=== PATIENT | male | born 1950 | race African-American/Black ===

== ENCOUNTER 2018-05-17 18:32 | Inpatient (IN) | payer OTHER ==
[~2018-05-17] VITALS: Ht 170.2 cm; Wt 107.6 kg
[~2018-05-17 18:32] MED LIST: AMLODIPINE BESYL5 MG ORAL; ASPIRIN81 M3 PO; GLIPIZIDE10 MG PO; LISINOPRIL5 MG ORAL
[2018-05-17 18:43] VITALS: BP 108/80
--- NOTE | 2018-05-17 19:01 | Emergency Room Report ---
History of Present Illness General Chief Complaint: Syncope Source: Patient, EMS Present Illness HPI 67-year-old male with hypertension diabetes presenting with generalized weakness near syncopal episode. Per patient he is visiting here, he staying at his sister's house with no air-conditioner, suddenly felt extremely hot. His sister called 911 because it looked like he was going to pass out but never actually passed out. When EMS arrived they found him to be tachycardic to the 130s as well as hypotensive. Sinus tachycardia. The gave him 500 mL of fluid and his systolic improved to 110. Patient is awake and alert since that he just felt very hot today. Denies any chest pain or shortness of breath. Says that he drank 7 7-ups today but did not have any appetite for solid food. Denies any abdominal pain. Allergies: Coded Allergies: No Known Allergies (Unverified , 05/17/18) Patient History Past Medical History: see triage record Past Surgical History: none Pertinent Family History: none Reviewed Nursing Documentation: PMH: Agreed; PSxH: Agreed Nursing Documentation-PMH Hx Hypertension: Yes Hx Diabetes: Yes Review of Systems All Other Systems: negative except mentioned in HPI Physical Exam Vital Signs Date Time Temp Pulse Resp B/P (MAP) Pulse Ox O2 Delivery O2 Flow Rate FiO2 05/17/18 18:23 98.0 124 20 105/69 97 Room Air 98.1 Sp02 EP Interpretation: reviewed, normal General Appearance: alert, GCS 15, non-toxic, mild distress Head: normocephalic, atraumatic Eyes: bilateral eye normal inspection, bilateral eye PERRL, bilateral eye EOMI ENT: normal ENT inspection, normal pharynx, normal voice, moist mucus membranes Neck: normal inspection, full range of motion, supple Respiratory: normal inspection, lungs clear, normal breath sounds, no respiratory distress, no retraction, no wheezing, speaking full sentences, chest symmetrical Cardiovascular #1: no edema, tachycardia Cardiovascular #2: 2+ radial (R), 2+ radial (L) Gastrointestinal: normal inspection, non tender, soft, non-distended, no guarding Musculoskeletal: normal inspection, back normal, normal range of motion, non- tender Neurologic: normal inspection, alert, oriented x3, responsive, caustic loader III-XII nml as tested, motor strength/tone normal, sensory intact, normal gait, speech normal Psychiatric: normal inspection, judgement/insight normal, memory normal Skin: normal inspection, normal color, no rash, warm/dry, well hydrated, normal turgor Medical Decision Making Diagnostic Impression: Primary Impression: Pre-syncope Additional Impressions: Dehydration Acute electrocardiogram changes Sepsis Renal failure ER Course 67-year-old male with generalized weakness and near syncopal episode DDX: Vasovagal vs. orthostatic / hypovolemic/dehydration vs. cardiac arrhythmia (SVT , Afib) vs. cardiac (, ACS) vs. PE vs. metabolic (hypoglycemia, hypoxia) versus sepsis, UTI, pneumonia Plan: bgm, cbc, bmp, ekg, cxr consider IVF ER course: Patient tachycardic to 120, given fluids Broad-spectrum antibiotics He remains awake alert, conversing with family Sepsis Re-examination Time: [9 PM VS: Temp AFEB HR 96 BP 109/70 RR 18 CVS: RRR Respiratory: Lungs clear bilaterally Peripheral pulses: 2+ radial Capillary refill: <2 seconds Skin exam: warm, dry, no rash, not mottled Disposition: Patient requires admission to telemetry D/W hospitalist DR Funes Please note that this Emergency Department Report was dictated using Simple[employer]TVax[employer] and frame mechanic technology software, occasionally this can lead to erroneous entry secondary to interpretation by the dictation equipment EKG Diagnostic Results EP Interpretation: Yes Rate: Tachycardic Rhythm: NSR ST Segments: T-wave inversion 1 and aVL ASA given to patient: No Rhythm Strip EP Interpretation: Yes Rate: 120 Rhythm: NSR, no PVCs, no ectopy Chest X-ray CXR: Ordered: Yes 1 view Indication: Syncope EP interpretation: Yes Interpretation: No consolidation, no effusion, no PTX, no acute cardiopulmonary disease Impression: No acute disease Electronically signed by Lea Flores MD Laboratory Tests Test 05/17/18 18:45 05/17/18 20:30 05/17/18 21:10 White Blood Count 19.1 K/UL (4.8-10.8) H Red Blood Count 4.17 M/UL (4.70-6.10) L Hemoglobin 12.6 G/DL (14.2-18.0) L Hematocrit 38.0 % (42.0-52.0) L Mean Corpuscular Volume 91 FL (80-99) Mean Corpuscular Hemoglobin 30.2 PG (27.0-31.0) Mean Corpuscular Hemoglobin Concent 33.1 G/DL (32.0-36.0) Red Cell Distribution Width 12.6 % (11.6-14.8) Platelet Count 263 K/UL (150-450) Mean Platelet Volume 5.3 FL (6.5-10.1) L Neutrophils (%) (Auto) % (45.0-75.0) Lymphocytes (%) (Auto) % (20.0-45.0) Monocytes (%) (Auto) % (1.0-10.0) Eosinophils (%) (Auto) % (0.0-3.0) Basophils (%) (Auto) % (0.0-2.0) Differential Total Cells Counted 100 Neutrophils % (Manual) 87 % (45-75) H Lymphocytes % (Manual) 4 % (20-45) L Monocytes % (Manual) 3 % (1-10) Eosinophils % (Manual) 0 % (0-3) Basophils % (Manual) 1 % (0-2) Band Neutrophils 5 % (0-8) Platelet Estimate Adequate Platelet Morphology Normal Red Blood Cell Morphology Normal Sodium Level 138 MMOL/L (136-145) Potassium Level 3.8 MMOL/L (3.5-5.1) Chloride Level 102 MMOL/L (98-107) Carbon Dioxide Level 20 MMOL/L (21-32) L Anion Gap 17 mmol/L (5-15) H Blood Urea Nitrogen 53 mg/dL (7-18) H Creatinine 3.2 MG/DL (0.55-1.30) H Estimate Glomerular Filtration Rate 23.6 mL/min (>60) Glucose Level 186 MG/DL (74-106) H Lactic Acid Level 3.40 mmol/L (0.4-2.0) H 1.70 mmol/L (0.66-2.22) Calcium Level 8.8 MG/DL (8.5-10.1) Total Bilirubin 0.5 MG/DL (0.2-1.0) Aspartate Amino Transferase (AST) 37 U/L (15-37) Alanine Aminotransferase (ALT) 27 U/L (12-78) Alkaline Phosphatase 76 U/L (46-116) Troponin I 0.000 ng/mL (0.000-0.056) Pro-B-Type Natriuretic Peptide 257 pg/mL (0-125) H Total Protein 8.0 G/DL (6.4-8.2) Albumin 3.0 G/DL (3.4-5.0) L Globulin 5.0 g/dL Albumin/Globulin Ratio 0.6 (1.0-2.7) L Serum Alcohol < 3 mg/dL Urine Color Pending Urine Appearance Pending Urine pH Pending Urine Specific Eldridge Pending Urine Protein Pending Urine Glucose (UA) Pending Urine Ketones Pending Urine Occult Blood Pending Urine Nitrite Pending Urine Bilirubin Pending Urine Urobilinogen Pending Urine Leukocyte Esterase Pending Urine Opiates Screen Pending Urine Barbiturates Screen Pending Phencyclidine (PCP) Screen Pending Urine Amphetamines Screen Pending Urine Benzodiazepines Screen Pending Urine Cocaine Screen Pending Urine Marijuana (THC) Screen Pending Last Vital Signs Date Time Temp Pulse Resp B/P (MAP) Pulse Ox O2 Delivery O2 Flow Rate FiO2 05/17/18 18:43 98.1 119 20 108/80 96 Room Air 98.1 Disposition: ADMITTED INPATIENT Condition: Serious Referrals: NON PHYSICIAN (PCP) Lea Flores M.D. May 17, 2018 19:01
[2018-05-17 19:02] LABS: HEMOGLOBIN 12.6 G/DL (14.2-18.0); MEAN CORPUSCULAR VOLUME 91 FL (80-99); PLATELET COUNT 263 K/UL (150-450); RED BLOOD COUNT 4.17 M/UL (4.70-6.10); RED CELL DISTRIBUTION WIDTH 12.6 % (11.6-14.8); WHITE BLOOD COUNT 19.1 K/UL (4.8-10.8)
[2018-05-17 19:23] LABS: ANION GAP 17 mmol/L (5-15); BLOOD UREA NITROGEN 53 mg/dL (7-18); CALCIUM 8.8 MG/DL (8.5-10.1); CARBON DIOXIDE 20 MMOL/L (21-32); CHLORIDE 102 MMOL/L (98-107); CREATININE 3.2 MG/DL (0.55-1.30); POTASSIUM 3.8 MMOL/L (3.5-5.1); SODIUM 138 MMOL/L (136-145)
[2018-05-17 19:35] LABS: ALANINE AMINOTRANSFERASE 27 U/L (12-78); ALBUMIN/GLOBULIN RATIO 0.6 (1.0-2.7); ALKALINE PHOSPHATASE 76 U/L (46-116); ASPARTATE AMINO TRANSFERASE 37 U/L (15-37); BILIRUBIN,TOTAL 0.5 MG/DL (0.2-1.0)
[2018-05-17] MEDS ORDERED: GLUCOTROL10 MG ORAL (19:42)
[2018-05-17] MEDS ORDERED: METOPROLOL SUC100 MG ORAL (19:42)
[2018-05-17] MEDS ORDERED: Vancomycin 1.5gm/D5W 250ml 250 ML IVPB ONE (20:15)
[2018-05-17] MEDS ORDERED: Piperacillin/Tazobactam 3.375 GM in NS 110 ML IVPB ONE (20:15)
[2018-05-17] MEDS ORDERED: ATORVASTATIN CA40 MG ORAL (20:25)
[2018-05-17] MEDS ORDERED: ASPIRIN EC325 MG ORAL (20:25)
[2018-05-17] MEDS ORDERED: AMLODIPINE BESY10 MG ORAL (20:25)
[2018-05-17] MEDS ORDERED: LISINOPRIL40 MG ORAL (20:25)
[2018-05-17] MEDS ORDERED: HYDROCHLOROTHIA25 MG ORAL (20:25)
[2018-05-17 22:14] LABS: APPEARANCE,URINE CLEAR; BILIRUBIN, URINE NEGATIVE (NEGATIVE); GLUCOSE, URINE (UA) NEGATIVE (NEGATIVE); KETONES,URINE NEGATIVE (NEGATIVE); LEUKOCYTE ESTERASE ,URINE 1+ (NEGATIVE); NITRITE,URINE NEGATIVE (NEGATIVE); PH,URINE 5 (4.5-8.0); PROTEIN,URINE 3+ (NEGATIVE); UROBILINOGEN,URINE 1 MG/DL (0.0-1.0)
[2018-05-17 22:15] LABS: COLOR,URINE YELLOW
[2018-05-18] VITALS (8 sets, daily range): BP systolic 80–119; BP diastolic 55–80
[2018-05-18] MEDS ORDERED: Acetaminophen 500mg (ES) tab ORAL PRN (01:00)
[2018-05-18] MEDS: NovoLOG Insulin Flexpen SUBQ SCH ×4 (05:48→20:17)
[2018-05-18 06:43] LABS: HEMATOCRIT 31.1 % (42.0-52.0); HEMOGLOBIN 10.7 G/DL (14.2-18.0); MEAN CORPUSCULAR VOLUME 88 FL (80-99); PLATELET COUNT 237 K/UL (150-450); RED BLOOD COUNT 3.52 M/UL (4.70-6.10); RED CELL DISTRIBUTION WIDTH 12.2 % (11.6-14.8)
[2018-05-18 07:29] LABS: ALANINE AMINOTRANSFERASE 36 U/L (12-78); ALBUMIN 2.5 G/DL (3.4-5.0); ALBUMIN/GLOBULIN RATIO 0.6 (1.0-2.7); ALKALINE PHOSPHATASE 63 U/L (46-116); ANION GAP 12 mmol/L (5-15); ASPARTATE AMINO TRANSFERASE 48 U/L (15-37); BILIRUBIN,TOTAL 0.4 MG/DL (0.2-1.0); BLOOD UREA NITROGEN 46 mg/dL (7-18); CARBON DIOXIDE 20 MMOL/L (21-32); CHLORIDE 107 MMOL/L (98-107); CHOLESTEROL 54 MG/DL (< 200); CREATINE KINASE 1686 U/L (26-308); CREATININE 2.6 MG/DL (0.55-1.30); FERRITIN 314 NG/ML (8-388); GAMMA GLUTAMYL TRANSPEPTIDASE 54 U/L (5-85); HDL CHOLESTEROL 17 MG/DL (40-60); PHOSPHORUS 4.3 MG/DL (2.5-4.9); POTASSIUM 4.1 MMOL/L (3.5-5.1); SODIUM 139 MMOL/L (136-145); TRIGLYCERIDES 138 MG/DL (30-150)
--- NOTE | 2018-05-18 08:04 | Cardiology Progress Note ---
Assessment/Plan Assessment/Plan The patient is seen and examined, full consult note is dictated. Objective Last 24 Hour Vital Signs Date Time Temp Pulse Resp B/P (MAP) Pulse Ox O2 Delivery O2 Flow Rate FiO2 05/18/18 05:30 98/56 (70) 05/18/18 04:00 98.1 79 18 80/55 (63) 100 98.1 05/18/18 03:47 74 05/18/18 01:12 Room Air 05/18/18 00:52 94 05/18/18 00:47 99.6 93 20 95/60 (72) 94 99.6 05/18/18 00:20 100.7 89 20 90/60 95 Room Air 213.3 05/18/18 00:20 100.7 89 20 90/60 95 Room Air 100.7 05/17/18 18:43 98.1 119 20 108/80 96 Room Air 98.1 05/17/18 18:23 98.0 124 20 105/69 97 Room Air 98.1 Intake and Output 05/17/18 05/18/18 19:00 07:00 Intake Total 161 ml Balance 161 ml Intake IV Total 161 ml # Voids 4 # Bowel Movements 1 Laboratory Tests Test 05/17/18 18:45 05/17/18 20:30 05/17/18 21:10 05/18/18 05:32 White Blood Count 19.1 K/UL (4.8-10.8) H 24.0 K/UL (4.8-10.8) *H Red Blood Count 4.17 M/UL (4.70-6.10) L 3.52 M/UL (4.70-6.10) L Hemoglobin 12.6 G/DL (14.2-18.0) L 10.7 G/DL (14.2-18.0) L Hematocrit 38.0 % (42.0-52.0) L 31.1 % (42.0-52.0) L Mean Corpuscular Volume 91 FL (80-99) 88 FL (80-99) Mean Corpuscular Hemoglobin 30.2 PG (27.0-31.0) 30.4 PG (27.0-31.0) Mean Corpuscular Hemoglobin Concent 33.1 G/DL (32.0-36.0) 34.3 G/DL (32.0-36.0) Red Cell Distribution Width 12.6 % (11.6-14.8) 12.2 % (11.6-14.8) Platelet Count 263 K/UL (150-450) 237 K/UL (150-450) Mean Platelet Volume 5.3 FL (6.5-10.1) L 5.4 FL (6.5-10.1) L Neutrophils (%) (Auto) % (45.0-75.0) % (45.0-75.0) Lymphocytes (%) (Auto) % (20.0-45.0) % (20.0-45.0) Monocytes (%) (Auto) % (1.0-10.0) % (1.0-10.0) Eosinophils (%) (Auto) % (0.0-3.0) % (0.0-3.0) Basophils (%) (Auto) % (0.0-2.0) % (0.0-2.0) Differential Total Cells Counted 100 Neutrophils % (Manual) 87 % (45-75) H Pending Lymphocytes % (Manual) 4 % (20-45) L Pending Monocytes % (Manual) 3 % (1-10) Eosinophils % (Manual) 0 % (0-3) Basophils % (Manual) 1 % (0-2) Band Neutrophils 5 % (0-8) Platelet Estimate Adequate Pending Platelet Morphology Normal Pending Red Blood Cell Morphology Normal Sodium Level 138 MMOL/L (136-145) 139 MMOL/L (136-145) Potassium Level 3.8 MMOL/L (3.5-5.1) 4.1 MMOL/L (3.5-5.1) Chloride Level 102 MMOL/L (98-107) 107 MMOL/L (98-107) Carbon Dioxide Level 20 MMOL/L (21-32) L 20 MMOL/L (21-32) L Anion Gap 17 mmol/L (5-15) H 12 mmol/L (5-15) Blood Urea Nitrogen 53 mg/dL (7-18) H 46 mg/dL (7-18) H Creatinine 3.2 MG/DL (0.55-1.30) H 2.6 MG/DL (0.55-1.30) H Estimat Glomerular Filtration Rate 23.6 mL/min (>60) 30.1 mL/min (>60) Glucose Level 186 MG/DL (74-106) H 113 MG/DL (74-106) H Lactic Acid Level 3.40 mmol/L (0.4-2.0) H 1.70 mmol/L (0.66-2.22) 1.30 mmol/L (0.4-2.0) Calcium Level 8.8 MG/DL (8.5-10.1) 8.0 MG/DL (8.5-10.1) L Total Bilirubin 0.5 MG/DL (0.2-1.0) 0.4 MG/DL (0.2-1.0) Aspartate Amino Transf (AST/SGOT) 37 U/L (15-37) 48 U/L (15-37) H Alanine Aminotransferase (ALT/SGPT) 27 U/L (12-78) 36 U/L (12-78) Alkaline Phosphatase 76 U/L (46-116) 63 U/L (46-116) Troponin I 0.000 ng/mL (0.000-0.056) 0.003 ng/mL (0.000-0.056) C-Reactive Protein, Quantitative 67.4 mg/dL (0.00-0.90) H Pro-B-Type Natriuretic Peptide 257 pg/mL (0-125) H 745 pg/mL (0-125) H Total Protein 8.0 G/DL (6.4-8.2) 6.9 G/DL (6.4-8.2) Albumin 3.0 G/DL (3.4-5.0) L 2.5 G/DL (3.4-5.0) L Globulin 5.0 g/dL 4.4 g/dL Albumin/Globulin Ratio 0.6 (1.0-2.7) L 0.6 (1.0-2.7) L Serum Alcohol < 3 mg/dL Urine Color Yellow Urine Appearance Clear Urine pH 5 (4.5-8.0) Urine Specific Milnor 1.015 (1.005-1.035) Urine Protein 3+ (NEGATIVE) H Urine Glucose (UA) Negative (NEGATIVE) Urine Ketones Negative (NEGATIVE) Urine Occult Blood 1+ (NEGATIVE) H Urine Nitrite Negative (NEGATIVE) Urine Bilirubin Negative (NEGATIVE) Urine Urobilinogen 1 MG/DL (0.0-1.0) H Urine Leukocyte Esterase 1+ (NEGATIVE) H Urine RBC 2-4 /HPF (0 - 0) H Urine WBC 2-4 /HPF (0 - 0) Urine Squamous Epithelial Cells None /LPF (NONE/OCC) Urine Bacteria Few /HPF (NONE) Urine Opiates Screen Negative (NEGATIVE) Urine Barbiturates Screen Negative (NEGATIVE) Phencyclidine (PCP) Screen Negative (NEGATIVE) Urine Amphetamines Screen Negative (NEGATIVE) Urine Benzodiazepines Screen Negative (NEGATIVE) Urine Cocaine Screen Negative (NEGATIVE) Urine Marijuana (THC) Screen Positive (NEGATIVE) H Hemoglobin A1c 7.6 % (4.3-6.0) H Uric Acid 10.2 MG/DL (2.6-7.2) H Phosphorus Level 4.3 MG/DL (2.5-4.9) Magnesium Level 1.6 MG/DL (1.8-2.4) L Ferritin 314 NG/ML (8-388) Gamma Glutamyl Transpeptidase 54 U/L (5-85) Total Creatine Kinase 1686 U/L (26-308) H Triglycerides Level 138 MG/DL (30-150) Cholesterol Level 54 MG/DL (< 200) LDL Cholesterol 22 mg/dL (<100) HDL Cholesterol 17 MG/DL (40-60) L Cholesterol/HDL Ratio 3.2 (3.3-4.4) L Folate 8.3 NG/ML (8.6-58.9) L Thyroid Stimulating Hormone (TSH) 0.968 uiU/mL (0.358-3.740) Antonio Dozier MD May 18, 2018 08:04
--- NOTE | 2018-05-18 08:42 | Diagnostic Imaging Report ---
. Indication: Chest pain Technique: One view of the chest Comparison: none Findings: Patient is rotated to the left. Lungs and pleural spaces are clear. Heart size is normal Impression: No acute process
[2018-05-18] MEDS ORDERED: Sodium Chloride 500ML 500 ML IV ONE (09:15)
--- NOTE | 2018-05-18 10:31 | Consultation ---
Consult Note Consult Note asked to eval for renal failure- 67-year-old male with hypertension diabetes presenting with generalized weakness near syncopal episode. Per patient he is visiting here, he staying at his sister's house with no air-conditioner, suddenly felt extremely hot. His sister called 911 because it looked like he was going to pass out but never actually passed out. When EMS arrived they found him to be tachycardic to the 130s as well as hypotensive. Sinus tachycardia. The gave him 500 mL of fluid and his systolic improved to 110. Patient is awake and alert since that he just felt very hot today. Denies any chest pain or shortness of breath. Says that he drank 7 7-ups today but did not have any appetite for solid food. Denies any abdominal pain. No Known Allergies (Unverified , 05/17/18) Hx Hypertension: Yes Hx Diabetes: Yes data reviewed patient examined . Assessment/Plan Renal failure- Acute on Chronic High CPK , Rhabdo Dehydration Sepsis / UTI HTN DM MJ in urine Anemia Hydrate- Monitor renal parameters and CPK Keep BP and BS in check on clear liquids for now Folic acid PO Anemia work up Monitor WBCs discussed with Endy Fuentes MD May 18, 2018 10:31
[2018-05-18] MEDS: Aspirin Baby 81mg ORAL SCH (11:10)
[2018-05-18 12:10] LABS: % IRON SATURATION 7 % (15-50); IRON 11 ug/dL (50-175); TOTAL IRON BINDING CAPACITY 160 ug/dL (250-450)
--- NOTE | 2018-05-18 13:02 | Consultation ---
DATE OF CONSULTATION: 05/18/2018 CARDIOLOGY CONSULTATION CONSULTING PHYSICIAN: Antonio Dozier M.D. REFERRING PHYSICIAN: Inez Palacio M.D. REASON FOR CONSULTATION: Management of presyncope. HISTORY OF PRESENT ILLNESS: The patient is a very unfortunate 67-year-old gentleman, who presents to the hospital with complaints of presyncopal symptoms of dizziness, lightheadedness, and near syncope events. The patient apparently was visiting sister's house and no air conditioning and felt hot. At the time of arrival by EMS, he was tachycardic in 130s and also hypotensive. He was given 500 mL of IV fluids, which helped his systolic blood pressure to rise to 110 mmHg. At the time of arrival to the emergency department, his blood pressure was 105/69 mmHg, however, his heart rate was 124. His 12-lead electrocardiogram in the emergency department showed sinus tachycardia, rate of [address] and T-wave abnormalities. The patient was admitted to telemetry unit for further evaluation and management of presyncope. Cardiology consultation was made at request of Dr. Palacio to assess presyncope. The patient states that he has a history of congestive heart failure, diagnosed in the past. His coronary artery disease risk factors including diabetes mellitus and hypertension. PAST MEDICAL HISTORY: 1. Hypertension. 2. Diabetes mellitus. PAST SURGICAL HISTORY: None. MEDICATIONS: List of medication include amlodipine 10 mg p.o. daily, aspirin 325 mg daily, atorvastatin 40 mg p.o. at bedtime, Glucotrol 10 mg p.o. daily, hydrochlorothiazide 25 mg p.o. daily, lisinopril 40 mg p.o. daily, and metoprolol 200 mg daily. ALLERGIES: No known drug allergies. FAMILY HISTORY: No premature coronary artery disease in first-degree relatives. SOCIAL HISTORY: Denies any tobacco, alcohol, or illicit drug use. REVIEW OF SYSTEMS: HEENT: Denies any headache, diplopia, or blurred vision. CONSTITUTIONAL: Generalized weakness, but no fever, chills, night sweats, or weight loss. CARDIOVASCULAR: Denies any chest pain, shortness of breath, PND, orthopnea, or leg swelling. PULMONARY: Denies any cough, hemoptysis, or wheezing. GASTROINTESTINAL: Denies any nausea, vomiting, diarrhea, constipation, abdominal pain, or GI bleed. GENITOURINARY: Any hematuria, dysuria, or incontinence. NEUROLOGIC: Presyncopal event, did not lose consciousness. Denies any signs of lateralizations or altered speech. PHYSICAL EXAMINATION: VITAL SIGNS: Blood pressure was 105/69, respirations 20, pulse of 124, temperature 98.2 degrees Fahrenheit, and O2 saturation 97% on room air. GENERAL: The patient is a very pleasant 67-year-old gentleman, in no apparent respiratory distress. Alert and oriented x4. HEENT: Atraumatic and normocephalic. Anicteric. Pupils are equal, round, and reactive to light and accommodation. Extraocular muscles intact. NECK: JVP less than 5 cm. No carotid bruits. Carotid upstrokes 2+ bilaterally. CARDIOVASCULAR: Normal S1 and S2. Regular rate and rhythm. No murmurs, gallops or rubs. PMI is at fourth intercostal space in the midclavicular line. LUNGS: Clear to auscultation bilaterally. ABDOMEN: Soft, nontender, and nondistended. No hepatosplenomegaly. Positive bowel sounds. EXTREMITIES: No evidence of edema, clubbing, or cyanosis. LABORATORY FINDINGS: WBC 19.1, hemoglobin of 12.6, hematocrit of 38.0, and platelet count 263 with 5% bandemia. Sodium 138, potassium is 3.8, chloride 102, bicarbonate 20, BUN of 53, creatinine 3.2, glucose is 186, and calcium is 8.8. Troponin I was 0.0 and 0.003. Triglycerides 138, total cholesterol , LDL of 22, and HDL of 17. Toxicology showed positive marijuana. ASSESSMENT AND PLAN: The patient is a very unfortunate 67-year-old gentleman, was seen in Cardiology consultation at request of Dr. Palacio. 1. Presyncope most likely due to dehydration. There are some signs of renal failure, questionable prerenal azotemia. With the fluid therapy, the patient has responded well and creatinine has dropped from 3.2 to 2.6. I would continue with hydration. A 2D echocardiography will be ordered to assess LV systolic and diastolic function. We will also obtain the carotid artery ultrasound to assess and rule out carotid artery stenosis. Orthostatic vitals may help to verify intravascular volume depletion. 2. History of congestive heart failure. According to the patient, there is no imaging found on the system to assess the status of the . ProBNP was 257. 3. A 2D echocardiography will shed light on evaluation of LV systolic and diastolic function. 4. Diabetes mellitus. The patient will required to be on combination of aspirin and statins. 5. History of hypertension. Given this episode of presyncope, I would likely not recommend hydrochlorothiazide and to try to manage hypotension with other agents. I would like to thank Dr. Palacio, for involving me in the care of this most pleasant patient. Antonio Dozier M.D. DR: CAMERON JOB#: [id number] CC:
[2018-05-18] MEDS ORDERED: cefTRIAXone 1 GM in D5W 55 ML IVPB SCH (14:00)
--- NOTE | 2018-05-18 17:29 | Cardiology Report ---
APPROVED REPORT EXAM: Two-dimensional and M-mode echocardiogram with Doppler and color Doppler. INDICATION ALTERED MENTAL STATUS M-Mode DIMENSIONS IVSd1.7 (0.7-1.1cm)Left Atrium (MM)4.0 (1.6-4.0cm) LVDd6.5 (3.5-5.6cm)Aortic Root3.7 (2.0-3.7cm) PWd1.5 (0.7-1.1cm)Aortic Cusp Exc.2.0 (1.5-2.0cm) IVSs2.8 cm LVDs4.3 (2.5-4.0cm) PWs2.0 cm Normal left ventricular chamber size, systolic function and wall motion. Left ventricular ejection fraction estimated to be 60-65 %. Mild left ventricular hypertrophy by 2-D. Trace posterior pericardial effusion. Mild left atrial enlargements by 2-D. Right cardiac chamber sizes are within normal limits. Focal aortic valve sclerosis with adequate cusp excursion. Thickened mitral valve leaflets with normal excursion. Mitral annulus and aortic root calcification. Pulmonic valve not well visualized. Normal tricuspid valve structure. IVC at size 2.2 with physiologic collapse. A color flow and spectral Doppler study was performed and revealed: No aortic regurgitation. Trace mitral regurgitation. Mitral diastolic velocities suggest reduced left ventricular relaxation c/w mild LV diastolic dysfunction (Grade I ). Trace tricuspid regurgitation. Tricuspid systolic velocities suggests peak right ventricular systolic pressure of33 mmHg.
[2018-05-19] VITALS: BP 119/65
--- NOTE | 2018-05-19 00:31 | Consultation ---
DATE OF CONSULTATION: 05/18/2018 INFECTIOUS DISEASE CONSULT CONSULTING PHYSICIAN: Tobin Lee M.D. PRIMARY ATTENDING PHYSICIAN: Inez Palacio M.D. REASON FOR CONSULT: Sepsis. HISTORY OF PRESENT ILLNESS: This is a 67-year-old male, admitted last night because of near syncope episode. The patient was at his sister home that have no air-conditioning and thinks he became dehydrated. The patient has tachycardia, hypotension, and fever of 100.7 in the hospital. Heart rate was up to 130. He had leukocytosis. The patient was found to have acute renal failure and rhabdomyolysis as well. PAST MEDICAL HISTORY: Significant for diabetes mellitus and hypertension. MEDICATIONS: Getting famotidine, sodium chloride, aspirin, folic acid, insulin, get the dose of Zosyn, and vancomycin. ALLERGIES: No known drug allergies. SOCIAL HISTORY: . He has 3 grownup children. He was a police dispatcher. Denies alcohol or drug abuse. Smoking on and off. PHYSICAL EXAMINATION: VITAL SIGNS: Temperature 98.1, blood pressure 98/56, and pulse 79. GENERAL APPEARANCE: No acute distress. Well developed. HEAD AND NECK: Sarben conjunctivae. No oral lesions. HEART: S1, S2. Regular. Normal rate. LUNGS: Clear. ABDOMEN: Obese, soft, and nontender. EXTREMITIES: No edema. A scar of old surgery on left forearm. SKIN: Has vitiligo. NEUROLOGIC: Awake, alert, and oriented. LABORATORY AND DIAGNOSTIC DATA: WBC 24,000, hemoglobin 10.7, hematocrit 31.1, and platelets 237,000. Sodium 139, potassium 4.9, chloride 107, bicarb 20, BUN 46, creatinine 2.6, and glucose is 113. CK level was 1686. AST was borderline high at 48. Other LFTs are within normal limits. Chest x-ray was negative. UA showed wbc of 2 to 4, rbc of 2 to 4, and leukocyte esterase 1+. Urine toxicology was positive for marijuana. IMPRESSION: Sepsis or systemic inflammatory response with fever, tachycardia, and hypotension. The patient's source of infection is not clear although he states that he developed diarrhea since last night. He has diabetes mellitus, hypertension, acute renal failure, rhabdomyolysis, and anemia. RECOMMENDATIONS: We will follow up with cultures. We will start empirically on ceftriaxone. We will follow up the clinical course. At the end of my exam, I thank Dr. Palacio for involving me in the care of this patient. Tobin Lee M.D. DR: LUIS JOB#: [id number] CC:
[2018-05-19 04:00] VITALS: BP 120/54
--- NOTE | 2018-05-19 04:17 | History and Physical Report ---
DATE OF ADMISSION: 05/17/2018 HISTORY OF PRESENT ILLNESS: The patient is very difficult to arouse, he is admitted for presyncope, tachycardia, weakness, hypotension, acute renal failure, sepsis, and leukocytosis. The patient is originally from [place] visiting his family here, all of a sudden yesterday was sweating, had a presyncopal episode but however his sister was able to grab him and he did not have a complete syncopal episode. The patient was on the verge of having syncope. The patient was also having diaphoresis at that time and tremors and had shaking as well. Paramedics was called. The patient denies chest pain. Denies nausea, vomiting, diarrhea. Denies cough. Denies shortness of breath. Denies chills. Denies orthopnea. PAST MEDICAL HISTORY: Significant for hypertension, hyperlipidemia, NIDDM. PAST SURGICAL HISTORY: Left arm surgery. MEDICATIONS: Norvasc, aspirin, Lipitor, glipizide, hydrochlorothiazide, lisinopril, metoprolol. SOCIAL HISTORY: The patient has history of smoking, history of drug and alcohol abuse. FAMILY HISTORY: Noncontributory. REVIEW OF SYSTEMS: HEENT: Denies headaches. RESPIRATORY: Denies shortness of breath. Denies cough. CARDIOVASCULAR: Denies chest pain. GASTROINTESTINAL: Denies any nausea, vomiting, or diarrhea. EXTREMITIES: Denies pain in the extremities. CENTRAL NERVOUS SYSTEM: Denies changes in vision or speech pattern but did have presyncopal episode and diaphoresis yesterday. PHYSICAL EXAMINATION: VITAL SIGNS: Temperature 98.1, pulse 79, blood pressure 80/55. HEENT: PERRLA. NECK: Supple. No lymphadenopathy. CHEST: Clear to auscultation. GASTROINTESTINAL: Soft, nontender, distended. No organomegaly. EXTREMITIES: No edema. Moves all four extremities. NEUROLOGIC: Sensory intact to light touch. Reflexes are equal on both sides. Moves all four extremities. LABORATORY DATA: WBC of 19.1, hemoglobin 12.6, and platelets of 263. Sodium 139, potassium 4.1, BUN of 46, creatinine of 2.6, and glucose of 113. ASSESSMENT AND PLAN: 1. Acute renal failure. 2. Leukocytosis. 3. Syncope. 4. Dehydration. 5. Hypotension. 6. Azotemia. 7. Sepsis. I have consulted Dr. Dozier, Dr. Vasquez, and Dr. Lee for the management and treatment of above-mentioned diagnoses and treatment. Inez Palacio M.D. DR: Sherrill JOB#: [id number] CC:
[2018-05-19 06:06] LABS: BASOPHILS % (AUTO) 0.6 % (0.0-2.0); EOSINOPHILS % (AUTO) 0.7 % (0.0-3.0); HEMATOCRIT 33.7 % (42.0-52.0); HEMOGLOBIN 11.3 G/DL (14.2-18.0); LYMPHOCYTES % (AUTO) 8.4 % (20.0-45.0); MEAN CORPUSCULAR VOLUME 88 FL (80-99); MONOCYTES % (AUTO) 6.7 % (1.0-10.0); NEUTROPHILS % (AUTO) 83.6 % (45.0-75.0); PLATELET COUNT 258 K/UL (150-450); RED BLOOD COUNT 3.82 M/UL (4.70-6.10); RED CELL DISTRIBUTION WIDTH 12.5 % (11.6-14.8); WHITE BLOOD COUNT 15.9 K/UL (4.8-10.8)
[2018-05-19] MEDS: NovoLOG Insulin Flexpen SUBQ SCH ×4 (06:30→20:38)
[2018-05-19 06:43] LABS: ALANINE AMINOTRANSFERASE 31 U/L (12-78); ALBUMIN 2.7 G/DL (3.4-5.0); ALBUMIN/GLOBULIN RATIO 0.6 (1.0-2.7); ALKALINE PHOSPHATASE 60 U/L (46-116); ANION GAP 10 mmol/L (5-15); ASPARTATE AMINO TRANSFERASE 47 U/L (15-37); BILIRUBIN,TOTAL 0.4 MG/DL (0.2-1.0); BLOOD UREA NITROGEN 26 mg/dL (7-18); CALCIUM 8.5 MG/DL (8.5-10.1); CARBON DIOXIDE 22 MMOL/L (21-32); CHLORIDE 109 MMOL/L (98-107); CREATINE KINASE 821 U/L (26-308); CREATININE 1.6 MG/DL (0.55-1.30); PHOSPHORUS 2.9 MG/DL (2.5-4.9); POTASSIUM 4.3 MMOL/L (3.5-5.1); SODIUM 141 MMOL/L (136-145)
[2018-05-19] MEDS: Aspirin Baby 81mg ORAL SCH (08:21)
--- NOTE | 2018-05-19 11:45 | General Progress Note ---
Assessment/Plan Problem List: (1) Pre-syncope ICD Codes: R55 - Syncope and collapse SNOMED: 032235430 (2) Dehydration ICD Codes: E86.0 - Dehydration SNOMED: 52907177 (3) Sepsis ICD Codes: A41.9 - Sepsis, unspecified organism SNOMED: 40299361 Status: progressing Assessment/Plan weak pre syncope r/o sepsis and dehyration afebrile reviewed chart and labs Subjective ROS Limited/Unobtainable: Yes Allergies: Coded Allergies: No Known Allergies (Unverified , 05/17/18) Objective Last 24 Hour Vital Signs Date Time Temp Pulse Resp B/P (MAP) Pulse Ox O2 Delivery O2 Flow Rate FiO2 05/19/18 09:00 Room Air 05/19/18 04:00 75 05/19/18 04:00 98.8 89 20 120/54 (76) 96 98.8 05/19/18 00:00 98.0 87 20 119/65 (83) 96 98.0 05/19/18 00:00 63 05/18/18 21:00 Room Air 05/18/18 20:00 98.3 81 24 112/74 (87) 95 98.3 05/18/18 20:00 73 05/18/18 16:00 79 05/18/18 16:00 98.0 81 21 117/78 (91) 97 98.0 05/18/18 12:00 75 05/18/18 12:00 98.7 77 21 119/80 (93) 96 98.7 Intake and Output 05/18/18 05/19/18 19:00 07:00 Intake Total 600 ml 173 ml Output Total 900 ml Balance 600 ml -727 ml Intake Oral 600 ml IV Total 173 ml Output Urine Total 900 ml # Voids 2 3 # Bowel Movements 1 1 Laboratory Tests 05/19/18 05:45: White Blood Count 15.9H, Red Blood Count 3.82L, Hemoglobin 11.3L, Hematocrit 33.7L, Mean Corpuscular Volume 88, Mean Corpuscular Hemoglobin 29.6, Mean Corpuscular Hemoglobin Concent 33.7, Red Cell Distribution Width 12.5, Platelet Count 258, Mean Platelet Volume 5.4L, Neutrophils (%) (Auto) 83.6H, Lymphocytes (%) (Auto) 8.4L, Monocytes (%) (Auto) 6.7, Eosinophils (%) (Auto) 0.7, Basophils (%) (Auto) 0.6, Sodium Level 141, Potassium Level 4.3, Chloride Level 109H, Carbon Dioxide Level 22, Anion Gap 10, Blood Urea Nitrogen 26H, Creatinine 1.6H, Estimat Glomerular Filtration Rate 52.7, Glucose Level 122H, Uric Acid 8.2H, Calcium Level 8.5, Phosphorus Level 2.9, Magnesium Level 2.0, Total Bilirubin 0.4, Aspartate Amino Transf (AST/SGOT) 47H, Alanine Aminotransferase (ALT/SGPT) 31, Alkaline Phosphatase 60, Total Creatine Kinase 821H, Pro-B-Type Natriuretic Peptide 765H, Total Protein 7.0, Albumin 2.7L, Globulin 4.3, Albumin/Globulin Ratio 0.6L, Random Vancomycin Level 4.0 Height (Feet): 5 Height (Inches): 7.00 Weight (Pounds): 237 Neck: supple Cardiovascular: normal rate Respiratory/Chest: lungs clear Inez aPlacio MD May 19, 2018 11:45
--- NOTE | 2018-05-19 12:26 | Infectious Diseases Prog Note ---
Assessment/Plan Assessment/Plan A; Gram negative sepsis Acute renal failure Rhabdomyolysis DM HPN Obesity P: Change Rocephin to Zosyn Abdominal US will f/u cultures Case was D/W PMD Subjective ROS Limited/Unobtainable: No Constitutional: Reports: no symptoms, other - feels better Respiratory: Reports: no symptoms Cardiovascular: Reports: no symptoms Gastrointestinal/Abdominal: Reports: diarrhea Genitourinary: Reports: no symptoms Musculoskeletal: Reports: no symptoms Allergies: Coded Allergies: No Known Allergies (Unverified , 05/17/18) Objective Vital Signs Last 24 Hour Vital Signs Date Time Temp Pulse Resp B/P (MAP) Pulse Ox O2 Delivery O2 Flow Rate FiO2 05/19/18 09:00 Room Air 05/19/18 04:00 75 05/19/18 04:00 98.8 89 20 120/54 (76) 96 98.8 05/19/18 00:00 98.0 87 20 119/65 (83) 96 98.0 05/19/18 00:00 63 05/18/18 21:00 Room Air 05/18/18 20:00 98.3 81 24 112/74 (87) 95 98.3 05/18/18 20:00 73 05/18/18 16:00 79 05/18/18 16:00 98.0 81 21 117/78 (91) 97 98.0 Height (Feet): 5 Height (Inches): 7.00 Weight (Pounds): 237 General Appearance: no acute distress HEENT: mucous membranes moist Respiratory/Chest: lungs clear Cardiovascular: normal rate Abdomen: soft, non tender, other - obese Extremities: no edema Neurologic/Psychiatric: alert, oriented x 3, responsive Microbiology Date/Time Source Procedure Growth Status 05/17/18 19:00 Blood Blood Culture - Preliminary Resulted 05/17/18 18:50 Blood Blood Culture - Preliminary Resulted Laboratory Tests Test 05/19/18 05:45 White Blood Count 15.9 K/UL (4.8-10.8) H Red Blood Count 3.82 M/UL (4.70-6.10) L Hemoglobin 11.3 G/DL (14.2-18.0) L Hematocrit 33.7 % (42.0-52.0) L Mean Corpuscular Volume 88 FL (80-99) Mean Corpuscular Hemoglobin 29.6 PG (27.0-31.0) Mean Corpuscular Hemoglobin Concent 33.7 G/DL (32.0-36.0) Red Cell Distribution Width 12.5 % (11.6-14.8) Platelet Count 258 K/UL (150-450) Mean Platelet Volume 5.4 FL (6.5-10.1) L Neutrophils (%) (Auto) 83.6 % (45.0-75.0) H Lymphocytes (%) (Auto) 8.4 % (20.0-45.0) L Monocytes (%) (Auto) 6.7 % (1.0-10.0) Eosinophils (%) (Auto) 0.7 % (0.0-3.0) Basophils (%) (Auto) 0.6 % (0.0-2.0) Sodium Level 141 MMOL/L (136-145) Potassium Level 4.3 MMOL/L (3.5-5.1) Chloride Level 109 MMOL/L (98-107) H Carbon Dioxide Level 22 MMOL/L (21-32) Anion Gap 10 mmol/L (5-15) Blood Urea Nitrogen 26 mg/dL (7-18) H Creatinine 1.6 MG/DL (0.55-1.30) H Estimat Glomerular Filtration Rate 52.7 mL/min (>60) Glucose Level 122 MG/DL (74-106) H Uric Acid 8.2 MG/DL (2.6-7.2) H Calcium Level 8.5 MG/DL (8.5-10.1) Phosphorus Level 2.9 MG/DL (2.5-4.9) Magnesium Level 2.0 MG/DL (1.8-2.4) Total Bilirubin 0.4 MG/DL (0.2-1.0) Aspartate Amino Transf (AST/SGOT) 47 U/L (15-37) H Alanine Aminotransferase (ALT/SGPT) 31 U/L (12-78) Alkaline Phosphatase 60 U/L (46-116) Total Creatine Kinase 821 U/L (26-308) H Pro-B-Type Natriuretic Peptide 765 pg/mL (0-125) H Total Protein 7.0 G/DL (6.4-8.2) Albumin 2.7 G/DL (3.4-5.0) L Globulin 4.3 g/dL Albumin/Globulin Ratio 0.6 (1.0-2.7) L Random Vancomycin Level 4.0 ug/mL Current Medications Medications (Trade) Dose Ordered Sig/Bakari Route PRN Reason Start Time Stop Time Status Last Admin Dose Admin Acetaminophen (Tylenol) 500 mg Q4H PRN ORAL Mild Pain/Temp > 100.5 05/18/18 01:00 06/17/18 00:59 Aspirin (ASA) 81 mg DAILY ORAL 05/18/18 11:00 06/17/18 10:59 05/19/18 08:21 Ceftriaxone Sodium 1 gm/ Dextrose 55 ml @ 110 mls/hr Q24H IVPB 05/18/18 14:00 05/25/18 13:59 05/18/18 15:24 Dextrose (Dextrose 50%) 25 ml STAT PRN IV Hypoglycemia 05/18/18 01:00 06/17/18 00:59 Dextrose (Dextrose 50%) 50 ml STAT PRN IV Hypoglycemia 05/18/18 01:00 06/17/18 00:59 Famotidine (Pepcid) 20 mg BID ORAL 05/18/18 18:00 06/17/18 17:59 05/19/18 08:21 Folic Acid (Folate) 2 mg DAILY ORAL 05/18/18 11:00 06/17/18 10:59 05/19/18 08:21 Insulin Aspart (NovoLOG) BEFORE MEALS AND HS SUBQ 05/18/18 06:30 06/17/18 06:29 05/18/18 20:17 Sodium Chloride 1,000 ml @ 100 mls/hr Q10H IV 05/18/18 11:00 06/16/18 10:59 05/19/18 06:35 Tobin Lee MD May 19, 2018 12:26
--- NOTE | 2018-05-19 14:37 | Nephrology Progress Note ---
Assessment/Plan Problem List: (1) Acute renal failure (ARF) Assessment: Cr lower (2) Dehydration (3) Sepsis (4) Rhabdomyolysis Assessment Renal failure- Acute on Chronic High CPK , Rhabdo Dehydration Sepsis / UTI HTN DM MJ in urine Anemia Plan Hydrate- Monitor renal parameters and CPK Keep BP and BS in check on clear liquids for now Folic acid PO Anemia work up Monitor WBCs discussed with RN Subjective ROS Limited/Unobtainable: No Constitutional: Reports: other - feels stronger Objective Objective Last 24 Hour Vital Signs Date Time Temp Pulse Resp B/P (MAP) Pulse Ox O2 Delivery O2 Flow Rate FiO2 05/19/18 09:00 Room Air 05/19/18 04:00 75 05/19/18 04:00 98.8 89 20 120/54 (76) 96 98.8 05/19/18 00:00 98.0 87 20 119/65 (83) 96 98.0 05/19/18 00:00 63 05/18/18 21:00 Room Air 05/18/18 20:00 98.3 81 24 112/74 (87) 95 98.3 05/18/18 20:00 73 05/18/18 16:00 79 05/18/18 16:00 98.0 81 21 117/78 (91) 97 98.0 Intake and Output 05/18/18 05/19/18 19:00 07:00 Intake Total 600 ml 173 ml Output Total 900 ml Balance 600 ml -727 ml Intake Oral 600 ml IV Total 173 ml Output Urine Total 900 ml # Voids 2 3 # Bowel Movements 1 1 Laboratory Tests 05/19/18 05:45: White Blood Count 15.9H, Red Blood Count 3.82L, Hemoglobin 11.3L, Hematocrit 33.7L, Mean Corpuscular Volume 88, Mean Corpuscular Hemoglobin 29.6, Mean Corpuscular Hemoglobin Concent 33.7, Red Cell Distribution Width 12.5, Platelet Count 258, Mean Platelet Volume 5.4L, Neutrophils (%) (Auto) 83.6H, Lymphocytes (%) (Auto) 8.4L, Monocytes (%) (Auto) 6.7, Eosinophils (%) (Auto) 0.7, Basophils (%) (Auto) 0.6, Sodium Level 141, Potassium Level 4.3, Chloride Level 109H, Carbon Dioxide Level 22, Anion Gap 10, Blood Urea Nitrogen 26H, Creatinine 1.6H, Estimat Glomerular Filtration Rate 52.7, Glucose Level 122H, Uric Acid 8.2H, Calcium Level 8.5, Phosphorus Level 2.9, Magnesium Level 2.0, Total Bilirubin 0.4, Aspartate Amino Transf (AST/SGOT) 47H, Alanine Aminotransferase (ALT/SGPT) 31, Alkaline Phosphatase 60, Total Creatine Kinase 821H, Pro-B-Type Natriuretic Peptide 765H, Total Protein 7.0, Albumin 2.7L, Globulin 4.3, Albumin/Globulin Ratio 0.6L, Random Vancomycin Level 4.0 Height (Feet): 5 Height (Inches): 7.00 Weight (Pounds): 237 General Appearance: no apparent distress Cardiovascular: normal rate Respiratory/Chest: decreased breath sounds Abdomen: soft Objective no other changes Endy Vasquez MD May 19, 2018 14:37
[2018-05-19] MEDS: Piperacillin/Tazobactam 3.375 GM in D5W 110 ML IVPB SCH ×2 (15:10→21:09)
[2018-05-19 20:00] VITALS: BP 118/80
[2018-05-20] VITALS: BP 126/78
[2018-05-20 04:00] VITALS: BP 122/77
[2018-05-20] MEDS: NovoLOG Insulin Flexpen SUBQ SCH ×4 (06:26→21:00)
[2018-05-20 06:27] LABS: BASOPHILS % (AUTO) 0.8 % (0.0-2.0); EOSINOPHILS % (AUTO) 0.7 % (0.0-3.0); HEMATOCRIT 34.1 % (42.0-52.0); HEMOGLOBIN 11.5 G/DL (14.2-18.0); LYMPHOCYTES % (AUTO) 10.5 % (20.0-45.0); MEAN CORPUSCULAR VOLUME 89 FL (80-99); MONOCYTES % (AUTO) 6.2 % (1.0-10.0); NEUTROPHILS % (AUTO) 81.8 % (45.0-75.0); PLATELET COUNT 259 K/UL (150-450); RED BLOOD COUNT 3.84 M/UL (4.70-6.10); RED CELL DISTRIBUTION WIDTH 12.4 % (11.6-14.8); WHITE BLOOD COUNT 14.1 K/UL (4.8-10.8)
[2018-05-20] MEDS: Piperacillin/Tazobactam 3.375 GM in D5W 110 ML IVPB SCH ×3 (06:27→21:17)
[2018-05-20 07:17] LABS: ALANINE AMINOTRANSFERASE 36 U/L (12-78); ALBUMIN 2.8 G/DL (3.4-5.0); ALBUMIN/GLOBULIN RATIO 0.6 (1.0-2.7); ALKALINE PHOSPHATASE 69 U/L (46-116); ANION GAP 8 mmol/L (5-15); ASPARTATE AMINO TRANSFERASE 28 U/L (15-37); BILIRUBIN,TOTAL 0.4 MG/DL (0.2-1.0); BLOOD UREA NITROGEN 16 mg/dL (7-18); CALCIUM 9.1 MG/DL (8.5-10.1); CARBON DIOXIDE 25 MMOL/L (21-32); CHLORIDE 107 MMOL/L (98-107); CREATININE 1.5 MG/DL (0.55-1.30); POTASSIUM 4.4 MMOL/L (3.5-5.1); SODIUM 140 MMOL/L (136-145)
[2018-05-20 07:44] VITALS: BP 133/77
[2018-05-20] MEDS: Aspirin Baby 81mg ORAL SCH (08:17)
--- NOTE | 2018-05-20 08:38 | Diagnostic Imaging Report ---
Indication: Abnormal liver function tests. Abnormal renal function tests Technique: Ahuja-scale and duplex images of the upper abdomen were obtained Comparison: none Findings: Gallbladder demonstrates gallstones. No gallbladder wall thickening or pericholecystic fluid. Sonographic Nogueira's sign is negative. Common bile duct measures 3 mm in diameter. No intrahepatic biliary ductal dilatation. Liver demonstrates normal echogenicity, no focal abnormality. Portal vein and hepatic veins are patent. Pancreas is unremarkable. Spleen is unremarkable. Left kidney measures 11.5 cm in length. Right kidney measures 12.1 cm length. Both kidneys demonstrate normal echogenicity. There is no hydronephrosis. There are small cysts in the kidneys bilaterally . Non-aneurysmal abdominal aorta . Impression: Cholelithiasis. Negative for dilated ducts Incidental finding bilateral renal cysts
--- NOTE | 2018-05-20 10:54 | Infectious Diseases Prog Note ---
Assessment/Plan Assessment/Plan A; Gram negative & gram positive sepsis Acute renal failure Rhabdomyolysis DM HPN Obesity Cholelithiasis Diastolic CHF P: Continue Zosyn Add IV Vancomycin will f/u cultures no discharge until blood culture result are available Subjective ROS Limited/Unobtainable: No Constitutional: Reports: no symptoms HEENT: Reports: no symptoms Respiratory: Reports: no symptoms Cardiovascular: Reports: no symptoms Gastrointestinal/Abdominal: Reports: diarrhea Genitourinary: Reports: no symptoms Musculoskeletal: Reports: no symptoms Allergies: Coded Allergies: No Known Allergies (Unverified , 05/17/18) Objective Vital Signs Last 24 Hour Vital Signs Date Time Temp Pulse Resp B/P (MAP) Pulse Ox O2 Delivery O2 Flow Rate FiO2 05/20/18 08:44 Room Air 05/20/18 08:01 47 05/20/18 07:44 98.6 72 18 133/77 (95) 95 98.6 05/20/18 04:00 108 05/20/18 04:00 98.6 62 18 122/77 (92) 95 98.6 05/20/18 00:00 59 05/20/18 00:00 98.3 65 18 126/78 (94) 93 98.3 05/19/18 21:00 Room Air 05/19/18 20:00 69 05/19/18 20:00 98.4 69 18 118/80 (93) 93 98.4 05/19/18 16:00 83 05/19/18 12:00 78 Height (Feet): 5 Height (Inches): 7.00 Weight (Pounds): 237 General Appearance: no acute distress HEENT: mucous membranes moist Respiratory/Chest: lungs clear Cardiovascular: bradycardia Abdomen: soft, non tender Extremities: no edema Skin: other - vitiligo Neurologic/Psychiatric: alert, oriented x 3, responsive Microbiology Date/Time Source Procedure Growth Status 05/17/18 19:00 Blood Blood Culture - Preliminary Gram Negative Bacillus 1 Resulted 05/17/18 18:50 Blood Blood Culture - Preliminary Gram Negative Bacillus 1 Resulted Laboratory Tests Test 05/20/18 05:45 White Blood Count 14.1 K/UL (4.8-10.8) H Red Blood Count 3.84 M/UL (4.70-6.10) L Hemoglobin 11.5 G/DL (14.2-18.0) L Hematocrit 34.1 % (42.0-52.0) L Mean Corpuscular Volume 89 FL (80-99) Mean Corpuscular Hemoglobin 29.9 PG (27.0-31.0) Mean Corpuscular Hemoglobin Concent 33.6 G/DL (32.0-36.0) Red Cell Distribution Width 12.4 % (11.6-14.8) Platelet Count 259 K/UL (150-450) Mean Platelet Volume 5.9 FL (6.5-10.1) L Neutrophils (%) (Auto) 81.8 % (45.0-75.0) H Lymphocytes (%) (Auto) 10.5 % (20.0-45.0) L Monocytes (%) (Auto) 6.2 % (1.0-10.0) Eosinophils (%) (Auto) 0.7 % (0.0-3.0) Basophils (%) (Auto) 0.8 % (0.0-2.0) Sodium Level 140 MMOL/L (136-145) Potassium Level 4.4 MMOL/L (3.5-5.1) Chloride Level 107 MMOL/L (98-107) Carbon Dioxide Level 25 MMOL/L (21-32) Anion Gap 8 mmol/L (5-15) Blood Urea Nitrogen 16 mg/dL (7-18) Creatinine 1.5 MG/DL (0.55-1.30) H Estimat Glomerular Filtration Rate 56.7 mL/min (>60) Glucose Level 156 MG/DL (74-106) H Calcium Level 9.1 MG/DL (8.5-10.1) Total Bilirubin 0.4 MG/DL (0.2-1.0) Aspartate Amino Transf (AST/SGOT) 28 U/L (15-37) Alanine Aminotransferase (ALT/SGPT) 36 U/L (12-78) Alkaline Phosphatase 69 U/L (46-116) Total Protein 7.4 G/DL (6.4-8.2) Albumin 2.8 G/DL (3.4-5.0) L Globulin 4.6 g/dL Albumin/Globulin Ratio 0.6 (1.0-2.7) L Current Medications Medications (Trade) Dose Ordered Sig/Bakari Route PRN Reason Start Time Stop Time Status Last Admin Dose Admin Acetaminophen (Tylenol) 500 mg Q4H PRN ORAL Mild Pain/Temp > 100.5 05/18/18 01:00 06/17/18 00:59 05/19/18 21:14 Aspirin (ASA) 81 mg DAILY ORAL 05/18/18 11:00 06/17/18 10:59 05/20/18 08:17 Dextrose (Dextrose 50%) 25 ml STAT PRN IV Hypoglycemia 05/18/18 01:00 06/17/18 00:59 Dextrose (Dextrose 50%) 50 ml STAT PRN IV Hypoglycemia 05/18/18 01:00 06/17/18 00:59 Famotidine (Pepcid) 20 mg BID ORAL 05/18/18 18:00 06/17/18 17:59 05/20/18 08:17 Folic Acid (Folate) 2 mg DAILY ORAL 05/18/18 11:00 06/17/18 10:59 05/20/18 08:17 Insulin Aspart (NovoLOG) BEFORE MEALS AND HS SUBQ 05/18/18 06:30 06/17/18 06:29 05/18/18 20:17 Piperacillin Sod/ Tazobactam Sod 3.375 gm/Dextrose 110 ml @ 27.5 mls/hr EVERY 8 HOURS IVPB 05/19/18 14:00 05/24/18 13:59 05/20/18 06:27 Sodium Chloride 1,000 ml @ 100 mls/hr Q10H IV 05/18/18 11:00 06/16/18 10:59 05/20/18 03:53 Tobin Lee MD May 20, 2018 10:54
--- NOTE | 2018-05-20 11:59 | Nephrology Progress Note ---
Assessment/Plan Problem List: (1) Acute renal failure (ARF) Assessment: Cr lower (2) Dehydration (3) Sepsis Assessment: gram negative (4) Rhabdomyolysis Assessment Renal failure- Acute on Chronic High CPK , Rhabdo Dehydration Sepsis / UTI HTN DM MJ in urine Anemia Plan Hydrate- Monitor renal parameters and CPK Keep BP and BS in check on clear liquids for now Folic acid PO Anemia work up Monitor WBCs discussed with RN Subjective ROS Limited/Unobtainable: No Constitutional: Reports: malaise, other - over all feels stronger Objective Objective Last 24 Hour Vital Signs Date Time Temp Pulse Resp B/P (MAP) Pulse Ox O2 Delivery O2 Flow Rate FiO2 05/20/18 08:44 Room Air 05/20/18 08:01 47 05/20/18 07:44 98.6 72 18 133/77 (95) 95 98.6 05/20/18 04:00 108 05/20/18 04:00 98.6 62 18 122/77 (92) 95 98.6 05/20/18 00:00 59 05/20/18 00:00 98.3 65 18 126/78 (94) 93 98.3 05/19/18 21:00 Room Air 05/19/18 20:00 69 05/19/18 20:00 98.4 69 18 118/80 (93) 93 98.4 05/19/18 16:00 83 05/19/18 12:00 78 Intake and Output 05/19/18 05/20/18 19:00 07:00 Intake Total 480 ml 250 ml Output Total 850 ml 1025 ml Balance -370 ml -775 ml Intake Oral 480 ml 250 ml Output Urine Total 850 ml 1025 ml # Voids 3 1 # Bowel Movements 1 Laboratory Tests 05/20/18 05:45: White Blood Count 14.1H, Red Blood Count 3.84L, Hemoglobin 11.5L, Hematocrit 34.1L, Mean Corpuscular Volume 89, Mean Corpuscular Hemoglobin 29.9, Mean Corpuscular Hemoglobin Concent 33.6, Red Cell Distribution Width 12.4, Platelet Count 259, Mean Platelet Volume 5.9L, Neutrophils (%) (Auto) 81.8H, Lymphocytes (%) (Auto) 10.5L, Monocytes (%) (Auto) 6.2, Eosinophils (%) (Auto) 0.7, Basophils (%) (Auto) 0.8, Sodium Level 140, Potassium Level 4.4, Chloride Level 107, Carbon Dioxide Level 25, Anion Gap 8, Blood Urea Nitrogen 16, Creatinine 1.5H, Estimat Glomerular Filtration Rate 56.7, Glucose Level 156H, Calcium Level 9.1, Total Bilirubin 0.4, Aspartate Amino Transf (AST/SGOT) 28, Alanine Aminotransferase (ALT/SGPT) 36, Alkaline Phosphatase 69, Total Protein 7.4, Albumin 2.8L, Globulin 4.6, Albumin/Globulin Ratio 0.6L Height (Feet): 5 Height (Inches): 7.00 Weight (Pounds): 237 General Appearance: no apparent distress Cardiovascular: other - variable rate Respiratory/Chest: decreased breath sounds Abdomen: soft Objective no other changes Endy Vasquez MD May 20, 2018 11:59
[2018-05-20] MEDS ORDERED: Vancomycin 1.5 GM/D5W 250ML IVPB ONE (12:00)
[2018-05-20 12:10] VITALS: BP 152/79
[2018-05-20 12:25] LABS: CREATINE KINASE 328 U/L (26-308)
--- NOTE | 2018-05-20 13:12 | General Progress Note ---
Assessment/Plan Problem List: (1) Pre-syncope ICD Codes: R55 - Syncope and collapse SNOMED: 241404929 (2) Dehydration ICD Codes: E86.0 - Dehydration SNOMED: 62355337 (3) Sepsis ICD Codes: A41.9 - Sepsis, unspecified organism SNOMED: 43672412 Status: progressing Assessment/Plan dc if ok w cardiology and id pre syncope r/o sepsis and dehyration Subjective ROS Limited/Unobtainable: Yes Allergies: Coded Allergies: No Known Allergies (Unverified , 05/17/18) Objective Last 24 Hour Vital Signs Date Time Temp Pulse Resp B/P (MAP) Pulse Ox O2 Delivery O2 Flow Rate FiO2 05/20/18 12:10 98.6 60 18 152/79 (103) 95 98.6 05/20/18 08:44 Room Air 05/20/18 08:01 47 05/20/18 07:44 98.6 72 18 133/77 (95) 95 98.6 05/20/18 04:00 108 05/20/18 04:00 98.6 62 18 122/77 (92) 95 98.6 05/20/18 00:00 59 05/20/18 00:00 98.3 65 18 126/78 (94) 93 98.3 05/19/18 21:00 Room Air 05/19/18 20:00 69 05/19/18 20:00 98.4 69 18 118/80 (93) 93 98.4 05/19/18 16:00 83 Intake and Output 05/19/18 05/20/18 19:00 07:00 Intake Total 480 ml 377.5 ml Output Total 850 ml 1025 ml Balance -370 ml -647.5 ml Intake Oral 480 ml 250 ml IV Total 127.5 ml Output Urine Total 850 ml 1025 ml # Voids 3 1 # Bowel Movements 1 Laboratory Tests 05/20/18 05:45: White Blood Count 14.1H, Red Blood Count 3.84L, Hemoglobin 11.5L, Hematocrit 34.1L, Mean Corpuscular Volume 89, Mean Corpuscular Hemoglobin 29.9, Mean Corpuscular Hemoglobin Concent 33.6, Red Cell Distribution Width 12.4, Platelet Count 259, Mean Platelet Volume 5.9L, Neutrophils (%) (Auto) 81.8H, Lymphocytes (%) (Auto) 10.5L, Monocytes (%) (Auto) 6.2, Eosinophils (%) (Auto) 0.7, Basophils (%) (Auto) 0.8, Sodium Level 140, Potassium Level 4.4, Chloride Level 107, Carbon Dioxide Level 25, Anion Gap 8, Blood Urea Nitrogen 16, Creatinine 1.5H, Estimat Glomerular Filtration Rate 56.7, Glucose Level 156H, Calcium Level 9.1, Total Bilirubin 0.4, Aspartate Amino Transf (AST/SGOT) 28, Alanine Aminotransferase (ALT/SGPT) 36, Alkaline Phosphatase 69, Total Creatine Kinase 328H, Total Protein 7.4, Albumin 2.8L, Globulin 4.6, Albumin/Globulin Ratio 0.6L Height (Feet): 5 Height (Inches): 7.00 Weight (Pounds): 237 Inez Palacio MD May 20, 2018 13:12
[2018-05-20] MEDS ORDERED: Acetaminophen 500mg (ES) tab ORAL PRN (15:52)
[2018-05-20 16:09] VITALS: BP 129/81
[2018-05-20 20:00] VITALS: BP 136/87
--- NOTE | 2018-05-20 23:51 | Cardiology Progress Note ---
Assessment/Plan Assessment/Plan 1. Presyncope most likely due to dehydration as with hydration pre-renal azotemia is improving with creat down to 1.5. 2. History of congestive heart failure, with ProBNP at 257. Echo reveals normal EF with grade I LVDD, consistent with impaired LV relaxation but normal intracardiac filling pressure. 3. Diabetes mellitus, continue aspirin and statins. 4. History of hypertension, continue monitoring BP, currently diet only. Objective Last 24 Hour Vital Signs Date Time Temp Pulse Resp B/P (MAP) Pulse Ox O2 Delivery O2 Flow Rate FiO2 05/20/18 20:00 98.2 76 18 136/87 (103) 95 98.2 05/20/18 16:09 98.2 60 18 129/81 (97) 96 98.2 05/20/18 12:10 98.6 60 18 152/79 (103) 95 98.6 05/20/18 08:44 Room Air 05/20/18 08:01 47 05/20/18 07:44 98.6 72 18 133/77 (95) 95 98.6 05/20/18 04:00 108 05/20/18 04:00 98.6 62 18 122/77 (92) 95 98.6 05/20/18 00:00 59 05/20/18 00:00 98.3 65 18 126/78 (94) 93 98.3 Intake and Output 05/19/18 05/20/18 19:00 07:00 Intake Total 480 ml 377.5 ml Output Total 850 ml 1025 ml Balance -370 ml -647.5 ml Intake Oral 480 ml 250 ml IV Total 127.5 ml Output Urine Total 850 ml 1025 ml # Voids 3 1 # Bowel Movements 1 2D Echo: EF 65%, mild LVH and LAE, Grade I LVDD, RVSP 33 mmHg Laboratory Tests Test 05/20/18 05:45 White Blood Count 14.1 K/UL (4.8-10.8) H Red Blood Count 3.84 M/UL (4.70-6.10) L Hemoglobin 11.5 G/DL (14.2-18.0) L Hematocrit 34.1 % (42.0-52.0) L Mean Corpuscular Volume 89 FL (80-99) Mean Corpuscular Hemoglobin 29.9 PG (27.0-31.0) Mean Corpuscular Hemoglobin Concent 33.6 G/DL (32.0-36.0) Red Cell Distribution Width 12.4 % (11.6-14.8) Platelet Count 259 K/UL (150-450) Mean Platelet Volume 5.9 FL (6.5-10.1) L Neutrophils (%) (Auto) 81.8 % (45.0-75.0) H Lymphocytes (%) (Auto) 10.5 % (20.0-45.0) L Monocytes (%) (Auto) 6.2 % (1.0-10.0) Eosinophils (%) (Auto) 0.7 % (0.0-3.0) Basophils (%) (Auto) 0.8 % (0.0-2.0) Sodium Level 140 MMOL/L (136-145) Potassium Level 4.4 MMOL/L (3.5-5.1) Chloride Level 107 MMOL/L (98-107) Carbon Dioxide Level 25 MMOL/L (21-32) Anion Gap 8 mmol/L (5-15) Blood Urea Nitrogen 16 mg/dL (7-18) Creatinine 1.5 MG/DL (0.55-1.30) H Estimat Glomerular Filtration Rate 56.7 mL/min (>60) Glucose Level 156 MG/DL (74-106) H Calcium Level 9.1 MG/DL (8.5-10.1) Total Bilirubin 0.4 MG/DL (0.2-1.0) Aspartate Amino Transf (AST/SGOT) 28 U/L (15-37) Alanine Aminotransferase (ALT/SGPT) 36 U/L (12-78) Alkaline Phosphatase 69 U/L (46-116) Total Creatine Kinase 328 U/L (26-308) H Total Protein 7.4 G/DL (6.4-8.2) Albumin 2.8 G/DL (3.4-5.0) L Globulin 4.6 g/dL Albumin/Globulin Ratio 0.6 (1.0-2.7) L Objective HEENT: Atraumatic and normocephalic. Anicteric. Pupils are equal, round, and reactive to light and accommodation. Extraocular muscles intact. NECK: JVP less than 5 cm. No carotid bruits. Carotid upstrokes 2+ bilaterally. CARDIOVASCULAR: Normal S1 and S2. Regular rate and rhythm. No murmurs, gallops or rubs. PMI is at fourth intercostal space in the midclavicular line. LUNGS: Clear to auscultation bilaterally. ABDOMEN: Soft, nontender, and nondistended. No hepatosplenomegaly. Positive bowel sounds. EXTREMITIES: No evidence of edema, clubbing, or cyanosis. Antonio Dozier MD May 20, 2018 23:51
[2018-05-21] VITALS: BP 134/83
[2018-05-21] MEDS ORDERED: Vancomycin 750mg/NS 250ml IVPB SCH
[2018-05-21] MEDS: Vancomycin 750mg/NS 250ml 250 ML IVPB SCH ×2 (00:25→13:19)
[2018-05-21 04:00] VITALS: BP 130/70
[2018-05-21] MEDS: Piperacillin/Tazobactam 3.375 GM in D5W 110 ML IVPB SCH ×3 (05:39→22:13)
[2018-05-21 06:22] LABS: EOSINOPHILS % (AUTO) 0.8 % (0.0-3.0); HEMATOCRIT 35.1 % (42.0-52.0); HEMOGLOBIN 11.8 G/DL (14.2-18.0); LYMPHOCYTES % (AUTO) 17.8 % (20.0-45.0); MEAN CORPUSCULAR VOLUME 89 FL (80-99); MONOCYTES % (AUTO) 5.4 % (1.0-10.0); PLATELET COUNT 265 K/UL (150-450); RED BLOOD COUNT 3.97 M/UL (4.70-6.10); RED CELL DISTRIBUTION WIDTH 12.2 % (11.6-14.8); WHITE BLOOD COUNT 11.9 K/UL (4.8-10.8)
[2018-05-21] MEDS: NovoLOG Insulin Flexpen SUBQ SCH ×4 (06:30→20:27)
[2018-05-21 06:33] LABS: ALANINE AMINOTRANSFERASE 40 U/L (12-78); ALBUMIN 2.9 G/DL (3.4-5.0); ALBUMIN/GLOBULIN RATIO 0.6 (1.0-2.7); ALKALINE PHOSPHATASE 72 U/L (46-116); ANION GAP 10 mmol/L (5-15); ASPARTATE AMINO TRANSFERASE 19 U/L (15-37); BILIRUBIN,TOTAL 0.4 MG/DL (0.2-1.0); BLOOD UREA NITROGEN 12 mg/dL (7-18); CALCIUM 9.4 MG/DL (8.5-10.1); CARBON DIOXIDE 23 MMOL/L (21-32); CHLORIDE 106 MMOL/L (98-107); CREATINE KINASE 162 U/L (26-308); CREATININE 1.4 MG/DL (0.55-1.30); PHOSPHORUS 3.7 MG/DL (2.5-4.9); POTASSIUM 4.3 MMOL/L (3.5-5.1); SODIUM 139 MMOL/L (136-145)
[2018-05-21] MEDS: Aspirin Baby 81mg ORAL SCH (08:10)
[2018-05-21 08:14] VITALS: BP 141/96
--- NOTE | 2018-05-21 09:40 | Nephrology Progress Note ---
Assessment/Plan Problem List: (1) Acute renal failure (ARF) Assessment: Cr lower (2) Gram-negative bacteremia (3) Sepsis (4) Dehydration (5) Rhabdomyolysis Assessment Renal failure- Acute on Chronic High CPK , Rhabdo Dehydration Sepsis / UTI HTN DM MJ in urine Anemia Plan IV mag Monitor renal parameters and CPK Keep BP and BS in check Folic acid PO Anemia work up Monitor WBCs discussed with RN Subjective ROS Limited/Unobtainable: No Constitutional: Reports: malaise Objective Objective Last 24 Hour Vital Signs Date Time Temp Pulse Resp B/P (MAP) Pulse Ox O2 Delivery O2 Flow Rate FiO2 05/21/18 08:50 Room Air 05/21/18 08:14 98.6 80 141/96 (111) 98.6 05/21/18 04:00 98.1 80 18 130/70 (90) 95 98.1 05/21/18 00:00 97.0 75 19 134/83 (100) 96 97.0 05/20/18 20:00 98.2 76 18 136/87 (103) 95 98.2 05/20/18 16:09 98.2 60 18 129/81 (97) 96 98.2 05/20/18 12:10 98.6 60 18 152/79 (103) 95 98.6 Intake and Output 05/20/18 05/21/18 19:00 07:00 Intake Total 1352.5 ml 1007.500 ml Output Total 200 ml Balance 1352.5 ml 807.500 ml Intake Oral 320 ml 120 ml IV Total 1032.5 ml 887.500 ml Output Urine Total 200 ml # Voids 4 5 # Bowel Movements 2 Laboratory Tests 05/21/18 04:40: White Blood Count 11.9H, Red Blood Count 3.97L, Hemoglobin 11.8L, Hematocrit 35.1L, Mean Corpuscular Volume 89, Mean Corpuscular Hemoglobin 29.7, Mean Corpuscular Hemoglobin Concent 33.5, Red Cell Distribution Width 12.2, Platelet Count 265, Mean Platelet Volume 5.7L, Neutrophils (%) (Auto) 75.0, Lymphocytes ( %) (Auto) 17.8L, Monocytes (%) (Auto) 5.4, Eosinophils (%) (Auto) 0.8, Basophils (%) (Auto) 1.0, Sodium Level 139, Potassium Level 4.3, Chloride Level 106, Carbon Dioxide Level 23, Anion Gap 10, Blood Urea Nitrogen 12, Creatinine 1.4H, Estimat Glomerular Filtration Rate > 60, Glucose Level 142H, Calcium Level 9.4, Phosphorus Level 3.7, Magnesium Level 1.7L, Total Bilirubin 0.4, Aspartate Amino Transf (AST/SGOT) 19, Alanine Aminotransferase (ALT/SGPT) 40, Alkaline Phosphatase 72, Total Creatine Kinase 162, Total Protein 7.5, Albumin 2.9L, Globulin 4.6, Albumin/Globulin Ratio 0.6L Height (Feet): 5 Height (Inches): 7.00 Weight (Pounds): 237 General Appearance: no apparent distress Objective no other changes Endy Vasquez MD May 21, 2018 09:40
--- NOTE | 2018-05-21 10:35 | General Progress Note ---
Assessment/Plan Problem List: (1) Pre-syncope ICD Codes: R55 - Syncope and collapse SNOMED: 370361087 (2) Dehydration ICD Codes: E86.0 - Dehydration SNOMED: 41611622 Status: stable, progressing Assessment/Plan ot pt diet cardio neph f/u cbc bmp am Subjective Constitutional: Reports: weakness Allergies: Coded Allergies: No Known Allergies (Unverified , 05/17/18) All Systems: reviewed and negative except above Subjective calm in bed Objective Last 24 Hour Vital Signs Date Time Temp Pulse Resp B/P (MAP) Pulse Ox O2 Delivery O2 Flow Rate FiO2 05/21/18 08:50 Room Air 05/21/18 08:14 98.6 80 141/96 (111) 98.6 05/21/18 04:00 98.1 80 18 130/70 (90) 95 98.1 05/21/18 00:00 97.0 75 19 134/83 (100) 96 97.0 05/20/18 20:00 98.2 76 18 136/87 (103) 95 98.2 05/20/18 16:09 98.2 60 18 129/81 (97) 96 98.2 05/20/18 12:10 98.6 60 18 152/79 (103) 95 98.6 Intake and Output 05/20/18 05/21/18 19:00 07:00 Intake Total 1352.5 ml 1007.500 ml Output Total 200 ml Balance 1352.5 ml 807.500 ml Intake Oral 320 ml 120 ml IV Total 1032.5 ml 887.500 ml Output Urine Total 200 ml # Voids 4 5 # Bowel Movements 2 Laboratory Tests 05/21/18 04:40: White Blood Count 11.9H, Red Blood Count 3.97L, Hemoglobin 11.8L, Hematocrit 35.1L, Mean Corpuscular Volume 89, Mean Corpuscular Hemoglobin 29.7, Mean Corpuscular Hemoglobin Concent 33.5, Red Cell Distribution Width 12.2, Platelet Count 265, Mean Platelet Volume 5.7L, Neutrophils (%) (Auto) 75.0, Lymphocytes ( %) (Auto) 17.8L, Monocytes (%) (Auto) 5.4, Eosinophils (%) (Auto) 0.8, Basophils (%) (Auto) 1.0, Sodium Level 139, Potassium Level 4.3, Chloride Level 106, Carbon Dioxide Level 23, Anion Gap 10, Blood Urea Nitrogen 12, Creatinine 1.4H, Estimat Glomerular Filtration Rate > 60, Glucose Level 142H, Calcium Level 9.4, Phosphorus Level 3.7, Magnesium Level 1.7L, Total Bilirubin 0.4, Aspartate Amino Transf (AST/SGOT) 19, Alanine Aminotransferase (ALT/SGPT) 40, Alkaline Phosphatase 72, Total Creatine Kinase 162, Total Protein 7.5, Albumin 2.9L, Globulin 4.6, Albumin/Globulin Ratio 0.6L Height (Feet): 5 Height (Inches): 7.00 Weight (Pounds): 237 General Appearance: lethargic EENT: normal ENT inspection Neck: normal alignment Cardiovascular: normal peripheral pulses, normal rate, regular rhythm Respiratory/Chest: chest wall non-tender, lungs clear, normal breath sounds Abdomen: normal bowel sounds, non tender, soft Extremities: normal inspection Edema: no edema noted Arm (L), no edema noted Arm (R), no edema noted Leg (L), no edema noted Leg (R), no edema noted Pedal (L), no edema noted Pedal (R), no edema noted Generalized Neurologic: motor weakness Skin: normal pigmentation, warm/dry Jonn Baker DO May 21, 2018 10:35
[2018-05-21 11:33] VITALS: BP 133/80
[2018-05-21] MEDS ORDERED: Tubing IV Secondary IV ONE (13:47)
--- NOTE | 2018-05-21 15:35 | Infectious Diseases Prog Note ---
Assessment/Plan Problems: (1) Cellulitis of sacral region Assessment & Plan: most likely the source of his bacteremia continue antibiotics pending culture off loading and local care as needed (2) Sepsis Assessment & Plan: due to E coli and strep agalactiae source suspect sacrum cellulitis continue zosyn and vancomycin pending final blood culture 2D echo no evidence of valve vegetations will repeat blood culture to confirm clearance (3) Acute renal failure (ARF) Assessment & Plan: due to sepsis improving continue hydration renally dosed medications as per pharmacy (4) Rhabdomyolysis Assessment & Plan: continue hydration monitor CK level Subjective Constitutional: Reports: no symptoms HEENT: Reports: no symptoms Respiratory: Reports: no symptoms Breasts: Reports: no symptoms Cardiovascular: Reports: no symptoms Gastrointestinal/Abdominal: Reports: no symptoms Genitourinary: Reports: no symptoms Neurologic: Reports: no symptoms Psychiatric: Reports: no symptoms Skin: Reports: rash, other - cellulitis at the sacrum Endocrine: Reports: no symptoms Hematologic: Reports: no symptoms Musculoskeletal: Reports: no symptoms Allergies: Coded Allergies: No Known Allergies (Unverified , 05/17/18) Objective Vital Signs Last 24 Hour Vital Signs Date Time Temp Pulse Resp B/P (MAP) Pulse Ox O2 Delivery O2 Flow Rate FiO2 05/21/18 11:33 97.7 63 18 133/80 (97) 97 97.7 05/21/18 08:50 Room Air 05/21/18 08:14 98.6 80 141/96 (111) 98.6 05/21/18 04:00 98.1 80 18 130/70 (90) 95 98.1 05/21/18 00:00 97.0 75 19 134/83 (100) 96 97.0 05/20/18 20:00 98.2 76 18 136/87 (103) 95 98.2 05/20/18 16:09 98.2 60 18 129/81 (97) 96 98.2 Height (Feet): 5 Height (Inches): 7.00 Weight (Pounds): 237 General Appearance: WD/WN, no acute distress HEENT: normocephalic, atraumatic, anicteric, mucous membranes moist, PERRL, EOMI, pharynx normal, supple, no JVD Respiratory/Chest: chest wall non-tender, lungs clear, normal breath sounds, no respiratory distress, no accessory muscle use Cardiovascular: normal peripheral pulses, normal rate, regular rhythm, no gallop/murmur, no JVD Abdomen: normal bowel sounds, soft, non tender, no organomegaly, non distended , no mass, no scars Genitourinary: normal external genitalia Extremities: no cyanosis, no clubbing Skin: no lesions, rash, other - red and dry with flakes at the sacrum Neurologic/Psychiatric: alert, oriented x 3, responsive Lymphatic: no neck adenopathy, no groin adenopathy Musculoskeletal: normal muscle bulk, no effusion Laboratory Tests Test 05/21/18 04:40 White Blood Count 11.9 K/UL (4.8-10.8) H Red Blood Count 3.97 M/UL (4.70-6.10) L Hemoglobin 11.8 G/DL (14.2-18.0) L Hematocrit 35.1 % (42.0-52.0) L Mean Corpuscular Volume 89 FL (80-99) Mean Corpuscular Hemoglobin 29.7 PG (27.0-31.0) Mean Corpuscular Hemoglobin Concent 33.5 G/DL (32.0-36.0) Red Cell Distribution Width 12.2 % (11.6-14.8) Platelet Count 265 K/UL (150-450) Mean Platelet Volume 5.7 FL (6.5-10.1) L Neutrophils (%) (Auto) 75.0 % (45.0-75.0) Lymphocytes (%) (Auto) 17.8 % (20.0-45.0) L Monocytes (%) (Auto) 5.4 % (1.0-10.0) Eosinophils (%) (Auto) 0.8 % (0.0-3.0) Basophils (%) (Auto) 1.0 % (0.0-2.0) Sodium Level 139 MMOL/L (136-145) Potassium Level 4.3 MMOL/L (3.5-5.1) Chloride Level 106 MMOL/L (98-107) Carbon Dioxide Level 23 MMOL/L (21-32) Anion Gap 10 mmol/L (5-15) Blood Urea Nitrogen 12 mg/dL (7-18) Creatinine 1.4 MG/DL (0.55-1.30) H Estimat Glomerular Filtration Rate > 60 mL/min (>60) Glucose Level 142 MG/DL (74-106) H Calcium Level 9.4 MG/DL (8.5-10.1) Phosphorus Level 3.7 MG/DL (2.5-4.9) Magnesium Level 1.7 MG/DL (1.8-2.4) L Total Bilirubin 0.4 MG/DL (0.2-1.0) Aspartate Amino Transf (AST/SGOT) 19 U/L (15-37) Alanine Aminotransferase (ALT/SGPT) 40 U/L (12-78) Alkaline Phosphatase 72 U/L (46-116) Total Creatine Kinase 162 U/L (26-308) Total Protein 7.5 G/DL (6.4-8.2) Albumin 2.9 G/DL (3.4-5.0) L Globulin 4.6 g/dL Albumin/Globulin Ratio 0.6 (1.0-2.7) L Current Medications Medications (Trade) Dose Ordered Sig/Bakari Route PRN Reason Start Time Stop Time Status Last Admin Dose Admin Acetaminophen (Tylenol) 500 mg Q4H PRN ORAL Mild Pain/Temp > 100.5 05/20/18 15:52 06/17/18 15:51 Aspirin (ASA) 81 mg DAILY ORAL 05/21/18 09:00 06/17/18 10:59 05/21/18 08:10 Dextrose (Dextrose 50%) 25 ml STAT PRN IV Hypoglycemia 05/21/18 01:00 06/17/18 00:59 Dextrose (Dextrose 50%) 50 ml STAT PRN IV Hypoglycemia 05/21/18 01:00 06/17/18 00:59 Famotidine (Pepcid) 20 mg BID ORAL 05/20/18 18:00 06/17/18 17:59 05/21/18 08:10 Folic Acid (Folate) 2 mg DAILY ORAL 05/21/18 09:00 06/17/18 10:59 05/21/18 08:11 Insulin Aspart (NovoLOG) BEFORE MEALS AND HS SUBQ 05/20/18 16:30 06/17/18 06:29 Piperacillin Sod/ Tazobactam Sod 3.375 gm/Dextrose 110 ml @ 27.5 mls/hr EVERY 8 HOURS IVPB 05/20/18 22:00 05/25/18 21:59 05/21/18 14:50 Sodium Chloride 1,000 ml @ 100 mls/hr Q10H IV 05/20/18 16:00 06/16/18 10:59 05/21/18 02:11 Vancomycin HCl (Vanco rx to dose) 1 ea DAILY PRN MISC Per rx protocol 05/21/18 09:00 06/19/18 10:59 Vancomycin/Sodium Chloride 250 ml @ 166.667 mls/hr Q12HR@0000,1200 IVPB 05/21/18 00:00 05/26/18 00:00 05/21/18 13:19 Altagracia Dennis M.D. May 21, 2018 15:35
[2018-05-21 16:01] VITALS: BP 130/78
[2018-05-21] MEDS ORDERED: Simethicone 80mg tab ORAL PRN (18:00)
[2018-05-21 20:00] VITALS: BP 136/74
--- NOTE | 2018-05-21 23:28 | Cardiology Progress Note ---
Assessment/Plan Assessment/Plan 1. Presyncope most likely due to dehydration as with hydration pre-renal azotemia is improving with creat down to 1.4. Correct Mg level. 2. History of congestive heart failure, with ProBNP at 257. Echo reveals normal EF with grade I LVDD, consistent with impaired LV relaxation but normal intracardiac filling pressure. 3. Diabetes mellitus, continue aspirin and statins. 4. History of hypertension, continue monitoring BP, currently diet only. Subjective Subjective No cardiac events. Objective Last 24 Hour Vital Signs Date Time Temp Pulse Resp B/P (MAP) Pulse Ox O2 Delivery O2 Flow Rate FiO2 05/21/18 21:00 Room Air 05/21/18 20:00 99.9 116 22 136/74 (94) 95 99.9 05/21/18 16:01 97.7 80 18 130/78 (95) 95 97.7 05/21/18 11:33 97.7 63 18 133/80 (97) 97 97.7 05/21/18 08:50 Room Air 05/21/18 08:14 98.6 80 141/96 (111) 98.6 05/21/18 04:00 98.1 80 18 130/70 (90) 95 98.1 05/21/18 00:00 97.0 75 19 134/83 (100) 96 97.0 Intake and Output 05/20/18 05/21/18 19:00 07:00 Intake Total 1352.5 ml 1007.500 ml Output Total 200 ml Balance 1352.5 ml 807.500 ml Intake Oral 320 ml 120 ml IV Total 1032.5 ml 887.500 ml Output Urine Total 200 ml # Voids 4 5 # Bowel Movements 2 2D Echo: EF 65%, MIld LVE/LAE, RVSP 33 mmHg, Grade I LVDD Laboratory Tests Test 05/21/18 04:40 White Blood Count 11.9 K/UL (4.8-10.8) H Red Blood Count 3.97 M/UL (4.70-6.10) L Hemoglobin 11.8 G/DL (14.2-18.0) L Hematocrit 35.1 % (42.0-52.0) L Mean Corpuscular Volume 89 FL (80-99) Mean Corpuscular Hemoglobin 29.7 PG (27.0-31.0) Mean Corpuscular Hemoglobin Concent 33.5 G/DL (32.0-36.0) Red Cell Distribution Width 12.2 % (11.6-14.8) Platelet Count 265 K/UL (150-450) Mean Platelet Volume 5.7 FL (6.5-10.1) L Neutrophils (%) (Auto) 75.0 % (45.0-75.0) Lymphocytes (%) (Auto) 17.8 % (20.0-45.0) L Monocytes (%) (Auto) 5.4 % (1.0-10.0) Eosinophils (%) (Auto) 0.8 % (0.0-3.0) Basophils (%) (Auto) 1.0 % (0.0-2.0) Sodium Level 139 MMOL/L (136-145) Potassium Level 4.3 MMOL/L (3.5-5.1) Chloride Level 106 MMOL/L (98-107) Carbon Dioxide Level 23 MMOL/L (21-32) Anion Gap 10 mmol/L (5-15) Blood Urea Nitrogen 12 mg/dL (7-18) Creatinine 1.4 MG/DL (0.55-1.30) H Estimat Glomerular Filtration Rate > 60 mL/min (>60) Glucose Level 142 MG/DL (74-106) H Calcium Level 9.4 MG/DL (8.5-10.1) Phosphorus Level 3.7 MG/DL (2.5-4.9) Magnesium Level 1.7 MG/DL (1.8-2.4) L Total Bilirubin 0.4 MG/DL (0.2-1.0) Aspartate Amino Transf (AST/SGOT) 19 U/L (15-37) Alanine Aminotransferase (ALT/SGPT) 40 U/L (12-78) Alkaline Phosphatase 72 U/L (46-116) Total Creatine Kinase 162 U/L (26-308) Total Protein 7.5 G/DL (6.4-8.2) Albumin 2.9 G/DL (3.4-5.0) L Globulin 4.6 g/dL Albumin/Globulin Ratio 0.6 (1.0-2.7) L Objective HEENT: Atraumatic and normocephalic. Anicteric. Pupils are equal, round, and reactive to light and accommodation. Extraocular muscles intact. NECK: JVP less than 5 cm. No carotid bruits. Carotid upstrokes 2+bilaterally. CARDIOVASCULAR: Normal S1 and S2. Regular rate and rhythm. No murmurs, gallops or rubs. PMI is at fourth intercostal space in the midclavicular line. LUNGS: Clear to auscultation bilaterally. ABDOMEN: Soft, nontender, and nondistended. No hepatosplenomegaly. Positive bowel sounds. EXTREMITIES: No evidence of edema, clubbing, or cyanosis. Antonio Dozier MD May 21, 2018 23:28
[2018-05-22] VITALS: BP 105/76
[2018-05-22] MEDS: Vancomycin 1 GM in NS 275 ML IVPB SCH ×2 (03:03→11:31)
[2018-05-22 04:00] VITALS: BP 118/77
[2018-05-22 06:26] LABS: BASOPHILS % (AUTO) 1.1 % (0.0-2.0); EOSINOPHILS % (AUTO) 0.5 % (0.0-3.0); HEMATOCRIT 33.5 % (42.0-52.0); HEMOGLOBIN 11.4 G/DL (14.2-18.0); LYMPHOCYTES % (AUTO) 13.3 % (20.0-45.0); MEAN CORPUSCULAR VOLUME 88 FL (80-99); MONOCYTES % (AUTO) 7.1 % (1.0-10.0); PLATELET COUNT 271 K/UL (150-450); RED BLOOD COUNT 3.82 M/UL (4.70-6.10); RED CELL DISTRIBUTION WIDTH 12.4 % (11.6-14.8); WHITE BLOOD COUNT 15.4 K/UL (4.8-10.8)
[2018-05-22 06:30] LABS: ANION GAP 10 mmol/L (5-15); BLOOD UREA NITROGEN 11 mg/dL (7-18); CALCIUM 9.3 MG/DL (8.5-10.1); CARBON DIOXIDE 24 MMOL/L (21-32); CHLORIDE 105 MMOL/L (98-107); CREATININE 1.6 MG/DL (0.55-1.30); POTASSIUM 4.2 MMOL/L (3.5-5.1); SODIUM 139 MMOL/L (136-145)
[2018-05-22] MEDS: NovoLOG Insulin Flexpen SUBQ SCH ×2 (06:30→11:30)
[2018-05-22] MEDS: Piperacillin/Tazobactam 3.375 GM in D5W 110 ML IVPB SCH (06:45)
[2018-05-22 08:24] VITALS: BP 119/73
[2018-05-22] MEDS: Aspirin Baby 81mg ORAL SCH (08:49)
--- NOTE | 2018-05-22 09:46 | General Progress Note ---
Assessment/Plan Problem List: (1) Pre-syncope ICD Codes: R55 - Syncope and collapse SNOMED: 923807172 (2) Dehydration ICD Codes: E86.0 - Dehydration SNOMED: 52302523 Status: stable, progressing Assessment/Plan ot pt diet cardio neph f/u cbc bmp am dc plan w hh if all clear Subjective Constitutional: Reports: weakness Allergies: Coded Allergies: No Known Allergies (Unverified , 05/17/18) All Systems: reviewed and negative except above Subjective calm in bed Objective Last 24 Hour Vital Signs Date Time Temp Pulse Resp B/P (MAP) Pulse Ox O2 Delivery O2 Flow Rate FiO2 05/22/18 09:00 Room Air 05/22/18 08:24 97.7 72 18 119/73 (88) 93 97.7 05/22/18 04:00 98.4 61 17 118/77 (91) 92 98.4 05/22/18 00:00 99.7 91 20 105/76 (86) 92 99.7 05/21/18 21:00 Room Air 05/21/18 20:00 99.9 116 22 136/74 (94) 95 99.9 05/21/18 16:01 97.7 80 18 130/78 (95) 95 97.7 05/21/18 11:33 97.7 63 18 133/80 (97) 97 97.7 Intake and Output 05/21/18 05/22/18 19:00 07:00 Intake Total 1842.500 ml 953.5 ml Balance 1842.500 ml 953.5 ml Intake Oral 1200 ml IV Total 642.500 ml 953.5 ml # Voids 4 4 # Bowel Movements 1 Laboratory Tests 05/21/18 23:15: Vancomycin Level Trough 10.2 05/22/18 04:40: White Blood Count 15.4H, Red Blood Count 3.82L, Hemoglobin 11.4L, Hematocrit 33.5L, Mean Corpuscular Volume 88, Mean Corpuscular Hemoglobin 30.0, Mean Corpuscular Hemoglobin Concent 34.1, Red Cell Distribution Width 12.4, Platelet Count 271, Mean Platelet Volume 5.8L, Neutrophils (%) (Auto) 78.0H, Lymphocytes (%) (Auto) 13.3L, Monocytes (%) (Auto) 7.1, Eosinophils (%) (Auto) 0.5, Basophils (%) (Auto) 1.1, Sodium Level 139, Potassium Level 4.2, Chloride Level 105, Carbon Dioxide Level 24, Anion Gap 10, Blood Urea Nitrogen 11, Creatinine 1.6H, Estimat Glomerular Filtration Rate 52.7, Glucose Level 164H, Calcium Level 9.3 Height (Feet): 5 Height (Inches): 7.00 Weight (Pounds): 237 General Appearance: lethargic EENT: normal ENT inspection Neck: normal alignment Cardiovascular: normal peripheral pulses, normal rate, regular rhythm Respiratory/Chest: chest wall non-tender, lungs clear, normal breath sounds Abdomen: normal bowel sounds, non tender, soft Extremities: normal inspection Edema: no edema noted Arm (L), no edema noted Arm (R), no edema noted Leg (L), no edema noted Leg (R), no edema noted Pedal (L), no edema noted Pedal (R), no edema noted Generalized Neurologic: motor weakness Skin: normal pigmentation, warm/dry Jonn Baker DO May 22, 2018 09:46
[2018-05-22 12:03] VITALS: BP 131/85
--- NOTE | 2018-05-22 12:34 | Nephrology Progress Note ---
Assessment/Plan Problem List: (1) Acute renal failure (ARF) Assessment: Cr lower (2) Gram-negative bacteremia (3) Sepsis (4) Dehydration (5) Rhabdomyolysis Assessment Renal failure- Acute on Chronic High CPK , Rhabdo resolved Dehydration Sepsis / UTI HTN DM MJ in urine Anemia Plan IV mag as needed Monitor renal parameters and CPK Keep BP and BS in check Folic acid PO Anemia work up Monitor WBCs discussed with RN Subjective ROS Limited/Unobtainable: No Objective Objective Last 24 Hour Vital Signs Date Time Temp Pulse Resp B/P (MAP) Pulse Ox O2 Delivery O2 Flow Rate FiO2 05/22/18 12:03 97.3 63 18 131/85 (100) 94 97.3 05/22/18 09:00 Room Air 05/22/18 08:24 97.7 72 18 119/73 (88) 93 97.7 05/22/18 04:00 98.4 61 17 118/77 (91) 92 98.4 05/22/18 00:00 99.7 91 20 105/76 (86) 92 99.7 05/21/18 21:00 Room Air 05/21/18 20:00 99.9 116 22 136/74 (94) 95 99.9 05/21/18 16:01 97.7 80 18 130/78 (95) 95 97.7 Intake and Output 05/21/18 05/22/18 19:00 07:00 Intake Total 1842.500 ml 953.5 ml Balance 1842.500 ml 953.5 ml Intake Oral 1200 ml IV Total 642.500 ml 953.5 ml # Voids 4 4 # Bowel Movements 1 Laboratory Tests 05/21/18 23:15: Vancomycin Level Trough 10.2 05/22/18 04:40: White Blood Count 15.4H, Red Blood Count 3.82L, Hemoglobin 11.4L, Hematocrit 33.5L, Mean Corpuscular Volume 88, Mean Corpuscular Hemoglobin 30.0, Mean Corpuscular Hemoglobin Concent 34.1, Red Cell Distribution Width 12.4, Platelet Count 271, Mean Platelet Volume 5.8L, Neutrophils (%) (Auto) 78.0H, Lymphocytes (%) (Auto) 13.3L, Monocytes (%) (Auto) 7.1, Eosinophils (%) (Auto) 0.5, Basophils (%) (Auto) 1.1, Sodium Level 139, Potassium Level 4.2, Chloride Level 105, Carbon Dioxide Level 24, Anion Gap 10, Blood Urea Nitrogen 11, Creatinine 1.6H, Estimat Glomerular Filtration Rate 52.7, Glucose Level 164H, Calcium Level 9.3 Height (Feet): 5 Height (Inches): 7.00 Weight (Pounds): 237 General Appearance: no apparent distress Cardiovascular: regular rhythm Respiratory/Chest: lungs clear Abdomen: soft Objective no other changes Endy Vasquez MD May 22, 2018 12:34
--- NOTE | 2018-05-22 12:42 | Infectious Diseases Prog Note ---
Assessment/Plan Assessment/Plan A; E. coli & strep group B sepsis Acute renal failure improving Rhabdomyolysis DM HPN Obesity Cholelithiasis Diastolic CHF P: discontinue Zosyn & Vancomycin start on PO Levaquin Subjective ROS Limited/Unobtainable: No Constitutional: Reports: no symptoms Cardiovascular: Reports: no symptoms Gastrointestinal/Abdominal: Reports: no symptoms Genitourinary: Reports: no symptoms Allergies: Coded Allergies: No Known Allergies (Unverified , 05/17/18) Objective Vital Signs Last 24 Hour Vital Signs Date Time Temp Pulse Resp B/P (MAP) Pulse Ox O2 Delivery O2 Flow Rate FiO2 05/22/18 12:03 97.3 63 18 131/85 (100) 94 97.3 05/22/18 09:00 Room Air 05/22/18 08:24 97.7 72 18 119/73 (88) 93 97.7 05/22/18 04:00 98.4 61 17 118/77 (91) 92 98.4 05/22/18 00:00 99.7 91 20 105/76 (86) 92 99.7 05/21/18 21:00 Room Air 05/21/18 20:00 99.9 116 22 136/74 (94) 95 99.9 05/21/18 16:01 97.7 80 18 130/78 (95) 95 97.7 Height (Feet): 5 Height (Inches): 7.00 Weight (Pounds): 237 General Appearance: WD/WN HEENT: mucous membranes moist Respiratory/Chest: lungs clear Cardiovascular: normal rate Abdomen: soft, non tender Extremities: no edema Neurologic/Psychiatric: alert, oriented x 3, responsive Laboratory Tests Test 05/21/18 23:15 05/22/18 04:40 Vancomycin Level Trough 10.2 ug/mL (5.0-12.0) White Blood Count 15.4 K/UL (4.8-10.8) H Red Blood Count 3.82 M/UL (4.70-6.10) L Hemoglobin 11.4 G/DL (14.2-18.0) L Hematocrit 33.5 % (42.0-52.0) L Mean Corpuscular Volume 88 FL (80-99) Mean Corpuscular Hemoglobin 30.0 PG (27.0-31.0) Mean Corpuscular Hemoglobin Concent 34.1 G/DL (32.0-36.0) Red Cell Distribution Width 12.4 % (11.6-14.8) Platelet Count 271 K/UL (150-450) Mean Platelet Volume 5.8 FL (6.5-10.1) L Neutrophils (%) (Auto) 78.0 % (45.0-75.0) H Lymphocytes (%) (Auto) 13.3 % (20.0-45.0) L Monocytes (%) (Auto) 7.1 % (1.0-10.0) Eosinophils (%) (Auto) 0.5 % (0.0-3.0) Basophils (%) (Auto) 1.1 % (0.0-2.0) Sodium Level 139 MMOL/L (136-145) Potassium Level 4.2 MMOL/L (3.5-5.1) Chloride Level 105 MMOL/L (98-107) Carbon Dioxide Level 24 MMOL/L (21-32) Anion Gap 10 mmol/L (5-15) Blood Urea Nitrogen 11 mg/dL (7-18) Creatinine 1.6 MG/DL (0.55-1.30) H Estimat Glomerular Filtration Rate 52.7 mL/min (>60) Glucose Level 164 MG/DL (74-106) H Calcium Level 9.3 MG/DL (8.5-10.1) Current Medications Medications (Trade) Dose Ordered Sig/Bakari Route PRN Reason Start Time Stop Time Status Last Admin Dose Admin Acetaminophen (Tylenol) 500 mg Q4H PRN ORAL Mild Pain/Temp > 100.5 05/20/18 15:52 06/17/18 15:51 Aspirin (ASA) 81 mg DAILY ORAL 05/21/18 09:00 06/17/18 10:59 05/22/18 08:49 Dextrose (Dextrose 50%) 25 ml STAT PRN IV Hypoglycemia 05/21/18 01:00 06/17/18 00:59 Dextrose (Dextrose 50%) 50 ml STAT PRN IV Hypoglycemia 05/21/18 01:00 06/17/18 00:59 Famotidine (Pepcid) 20 mg BID ORAL 05/20/18 18:00 06/17/18 17:59 05/22/18 08:49 Folic Acid (Folate) 2 mg DAILY ORAL 05/21/18 09:00 06/17/18 10:59 05/22/18 08:50 Insulin Aspart (NovoLOG) BEFORE MEALS AND HS SUBQ 05/20/18 16:30 06/17/18 06:29 Piperacillin Sod/ Tazobactam Sod 3.375 gm/Dextrose 110 ml @ 27.5 mls/hr EVERY 8 HOURS IVPB 05/20/18 22:00 05/25/18 21:59 05/22/18 06:45 Simethicone (Mylicon) 80 mg QID PRN ORAL Abdominal cramps 05/21/18 18:00 06/20/18 17:59 Sodium Chloride 1,000 ml @ 100 mls/hr Q10H IV 05/20/18 16:00 06/16/18 10:59 05/21/18 02:11 Vancomycin HCl (Vanco rx to dose) 1 ea DAILY PRN MISC Per rx protocol 05/21/18 09:00 06/19/18 10:59 Vancomycin HCl 1 gm/Sodium Chloride 275 ml @ 184 mls/hr Q12H IVPB 05/22/18 00:00 05/27/18 00:00 05/22/18 11:31 Tobin Lee MD May 22, 2018 12:42
[2018-05-22] MEDS ORDERED: Levofloxacin 500mg tab ORAL SCH (12:48)
[2018-05-22] MEDS ORDERED: LEVAQUIN750 MG ORAL (14:01)
--- NOTE | 2018-05-23 10:44 | Discharge Summary ---
Discharge Summary Discharge Summary _ DATE OF ADMISSION: 05/17/2018 DATE OF DISCHARGE: 05/22/2018 REASON FOR ADMISSION: 67 years old male with past medical history of hypertension and diabetes , was visiting his sister in [place], was brought to emergency room due to generalized weakness and near syncopal episode. Apparently the house had no air conditioning . Patient felt extremely hot. According to sister, patient looked like he was going to pass out, but he never actually passed out. Allopathic Doctor found patient to be tachycardic with heart rate in 130s and hypotensive. EKG showed sinus tachycardia. Patient received 500 ML of fluid in the field and his systolic blood pressure improved to 110. Upon evaluation in emergency department, vital signs reveal tachycardia with heart rate 124, blood pressure 105/69 . Patient denied fever and chills. No abdominal pain. Laboratory workup revealed leukocytosis WBC 19.1. Hemoglobin 12.6, hematocrit 38. BUN 53 ,creatinine 3.2. Lactic acid 3.4. CRP 67.4. [id number]. Troponin negative .EKG revealed normal sinus rhythm. ProBNP 257. Urinalysis revealed no evidence of UTI. Urine toxicology screen was positive for marijuana. patient admitted with diagnoses of presyncope ,dehydration ,renal failure , rhabdomyolysis, sepsis, marijuana user. CONSULTANTS: customer expert Dr. Jacoby DAMON specialist Dr. Lawson Lee frickertron checker Dr. Vasquez [facility]: Patient admitted. Patient started on generous IV hydration. Renal parameters electrolytes were closely monitored. CK was trending down. Nephrotoxins were avoided. Electrolytes replaced as needed. Drafting Supervisor closely followed. Patient started on empiric antibiotics. Blood culture revealed Escherichia coli and Strep group B . Repeated blood cultures were negative. CRP trending down. Echocardiogram revealed preserved ejection fraction of 60-65% and right ventricular systolic pressure of 33. No evidence of vegetation. Abdominal ultrasound revealed cholelithiasis, but no evidence of dilated ducts. Urinalysis was negative for evidence of UTI. CXR negative for acute cardiopulmonary pathology. Patient with evidence of sacral wound cellulitis. Source of bacteremia likely sacral wound cellulitis. Wound care provided as per wound care protocol. Leukocytosis trending down. Patient afebrile . Patient was discharged on antibiotics to be continued at home to complete the course. Edge Worker closely followed. According to customer expert presyncope was most likely due to dehydration. Blood pressure stabilized. Patient with history of congestive heart failure . Echocardiogram revealed grade 1 left ventricular diastolic dysfunction consistent with impaired left ventricular relaxation but normal intracardiac feeding pressures. Aspirin and statin were continued. Blood sugar was managed with sliding scale of insulin. CK trending down : from initial 1686 down to 328 . BUN down to 11 and creatinine down to 1.6. Hemoglobin and hematocrit were closely monitored with goal to keep hemoglobin above 7, and remained at baseline. Prior to discharge hemoglobin 11.4 and hematocrit 33.5. Anemia workup was consistent with anemia of iron deficiency and folate deficiency. Patient started on folic supplement GI prophylaxis provided. Supportive care provided. Pain management was addressed as needed. Patient was working with physical and occupational therapists. Fall precautions maintained. Patient was able to ambulate independently. Patient was instructed to avoid sudden changes in position. Patient clinically improved and was stable for discharge home with home health services FINAL DIAGNOSES: Escherichia coli and Strep group B sepsis, likely due to sacral wound cellulitis Sacral wound cellulitis Acute on chronic renal failure Presyncope, likely secondary to dehydration Dehydration Rhabdomyolysis Anemia iron deficiency Folic acid deficiency Hypertension Diabetes mellitus History of CHF Cholelithiasis Obesity Marijuana user DISCHARGE MEDICATIONS: See Medication Reconciliation list. DISCHARGE INSTRUCTIONS: Patient was discharged home with home health services. Follow up with primary care provider in one week. Complete antibitoic as outlined in emdicationr econcilaitionlsit. Mainraun adequente hydration. Limit amrijuana use. I have been assigned to dictate discharge summary for this account. I was not involved in the patient's management. Mary Guillen NP May 23, 2018 10:44
== END 2018-05-22 15:45 | disposition home health service (06) | DRG 872 ==
LOC: EDBD 18:32 → EMR 18:48 → EDBEDREQ 19:10 → 2E 19:46 → EDBEDREQ 20:09 → 4W 05-20 15:46
DX: A41.51 Sepsis due to Escherichia coli [E. coli] (principal); L03.312 Cellulitis of back [any part except buttock and flank]; I13.0 Hypertensive heart and chronic kidney disease with heart failure and stage 1 through stage 4 chronic kidney disease, or unspecified chronic kidney disease; N17.9 Acute kidney failure, unspecified; M62.82 Rhabdomyolysis; I50.32 Chronic diastolic (congestive) heart failure; A40.1 Sepsis due to streptococcus, group B; E11.22 Type 2 diabetes mellitus with diabetic chronic kidney disease; N18.9 Chronic kidney disease, unspecified; E86.0 Dehydration; R55 Syncope and collapse; D50.9 Iron deficiency anemia, unspecified; K80.20 Calculus of gallbladder without cholecystitis without obstruction; E66.9 Obesity, unspecified; F12.90 Cannabis use, unspecified, uncomplicated
CPT/HCPCS: 36415; 71045; 76700; 80048; 80053; 80061; 80202; 80307; 80329; 81003; 82550; 82607; 82728; 82746; 82962; 82977; 83036; 83540; 83550; 83605; 83735; 83880; 84100; 84443; 84484; 84550; 85007; 85025; 86140; 87040; 87181; 93005; 93306; 99285; J1815